=== PATIENT | female | born 1995 | race Caucasian/White ===

== ENCOUNTER 2018-10-16 20:58 | Observation (INO) | payer OTHER ==
--- NOTE | 2018-10-16 22:46 | EDM.PDOC ---
ED HPI GENERAL MEDICAL PROBLEM - General Chief Complaint: Abdominal Pain Stated Complaint: abd pain Time Seen by Provider: 10/16/18 22:45 Source of Information: Reports: Patient History Limitations: Reports: No Limitations - History of Present Illness INITIAL COMMENTS - FREE TEXT/NARRATIVE: pt arrived with pain in the rt upper abdoman. She has had some pain for 2 days but it was much worse tonight She has had a couple of other attacks but not this severe. . Onset: Other ( started yesterday. ) Duration: Hour(s): Location: Reports: Abdomen Associated Symptoms: Reports: Other ( severe rt upper abdomanal pain) Right Abdomen Pain Score (Numeric/FACES): 5 - Related Data Allergies Allergy/AdvReac Type Severity Reaction Status Date / Time amoxicillin Allergy Hives Verified 11/02/14 15:56 Home Meds: Home Meds Sertraline [Zoloft] 100 mg PO BEDTIME 10/16/18 [History] Past Medical History HEENT History: Reports: Impaired Vision Gastrointestinal History: Reports: Other (See Below) Other Gastrointestinal History: recent constipation 2 months ago. took miralax no relief. pain worse after eatingRUQ Psychiatric History: Reports: Anxiety - Infectious Disease History Infectious Disease History: Reports: Chicken Pox - Past Surgical History HEENT Surgical History: Reports: Adenoidectomy, Tonsillectomy Other Female Surgeries/Procedures: LMP 10/02/18 Social & Family History - Tobacco Use Smoking Status *Q: Never Smoker - Caffeine Use Caffeine Use: Reports: Soda - Alcohol Use Days Per Week of Alcohol Use: 1 Number of Drinks Per Day: 3 Total Drinks Per Week: 3 Time of Last Drink: 22:00 - Recreational Drug Use Recreational Drug Use: No ED ROS GENERAL - Review of Systems Review Of Systems: See Below Constitutional: Reports: Decreased Appetite HEENT: Reports: No Symptoms Respiratory: Reports: No Symptoms Cardiovascular: Reports: No Symptoms Endocrine: Reports: No Symptoms GI/Abdominal: Reports: Abdominal Pain, Nausea, Other ( severe pain in the rt upper abdoman. ) : Reports: No Symptoms Musculoskeletal: Reports: No Symptoms Skin: Reports: No Symptoms Neurological: Reports: No Symptoms Psychiatric: Reports: No Symptoms ED EXAM, GI/ABD - Physical Exam Exam: See Below Text/Narrative:: pt arrived with pain in the rt upper abdoman. She was rating her pain at a 7. Exam Limited By: No Limitations General Appearance: Alert, Moderate Distress Ears: Normal TMs Nose: Normal Inspection Throat/Mouth: Normal Inspection Head: Atraumatic Neck: Normal Inspection Respiratory/Chest: No Respiratory Distress Cardiovascular: Regular Rate, Rhythm GI/Abdominal Exam: Other (pt is very tender in the rt upper abdoman with some guarding. She is nauseated but is not vomiting. She is rating her pasin at a 8. ) (Female) Exam: Deferred Rectal (Female) Exam: Deferred Back Exam: Normal Inspection Extremities: Normal Inspection Neurological: Alert, Oriented, Normal Cognition Psychiatric: Anxious Course - Vital Signs Last Recorded V/S: Last Vital Signs Temp 37.4 C 10/16/18 21:51 Pulse 79 10/16/18 21:51 Resp 16 10/16/18 21:51 BP 147/86 H 10/16/18 21:51 Pulse Ox 99 10/16/18 21:51 - Orders/Labs/Meds Orders: Active Orders 24 hr Category Date Time Status Sodium Chloride 0.9% [Normal Saline] 1,000 ml Med 10/17/18 00:30 Active IV ASDIRECTED Medication Orders Sodium Chloride (Normal Saline) 1,000 mls @ 999 mls/hr IV ASDIRECTED MCKAY Labs: Laboratory Tests 10/16/18 10/16/18 10/16/18 Range/Units 22:59 23:02 23:02 WBC 11.0 (4.5-11.0) K/uL RBC 4.73 (3.30-5.50) M/uL Hgb 13.8 (12.0-15.0) g/dL Hct 41.5 (36.0-48.0) % MCV 88 (80-98) fL MCH 29 (27-31) pg MCHC 33 (32-36) % Plt Count 392 (150-400) K/uL Neut % (Auto) 72 H (36-66) % Lymph % (Auto) 20 L (24-44) % [place] % (Auto) 7 H (2-6) % Eos % (Auto) 1 L (2-4) % Baso % (Auto) 0 (0-1) % Sodium (140-148) mmol/L Potassium (3.6-5.2) mmol/L Chloride (100-108) mmol/L Carbon Dioxide (21-32) mmol/L Anion Gap (5.0-14.0) mmol/L BUN (7-18) mg/dL Creatinine (0.6-1.0) mg/dL Est Cr Clr Drug Dosing mL/min Estimated GFR (MDRD) (>60) Glucose (74-106) mg/dL Calcium (8.5-10.1) mg/dL Total Bilirubin (0.2-1.0) mg/dL AST (15-37) U/L ALT (12-78) U/L Alkaline Phosphatase (46-116) U/L C-Reactive Protein 0.71 H (0.0-0.3) mg/dL Total Protein (6.4-8.2) g/dL Albumin (3.4-5.0) g/dL Globulin (2.3-3.5) g/dL Albumin/Globulin Ratio (1.2-2.2) Lipase (73-393) U/L Urine Color Yellow Urine Appearance Clear Urine pH 5.0 (4.5-8.0) Ur Specific [place] 1.020 (1.008-1.030) Urine Protein Negative (NEGATIVE) mg/dL Urine Glucose (UA) Normal (NEGATIVE) mg/dL Urine Ketones Negative (NEGATIVE) mg/dL Urine Occult Blood Negative (NEGATIVE) Urine Nitrite Negative (NEGATIVE) Urine Bilirubin Negative (NEGATIVE) Urine Urobilinogen Normal (NORMAL) mg/dL Ur Leukocyte Esterase Negative (NEGATIVE) Urine RBC 0-5 (0-5) Urine WBC 0-5 (0-5) Ur Epithelial Cells Moderate Amorphous Sediment Not seen Urine Bacteria Few Urine Mucus Not seen 10/16/18 10/17/18 Range/Units 23:02 00:02 WBC (4.5-11.0) K/uL RBC (3.30-5.50) M/uL Hgb (12.0-15.0) g/dL Hct (36.0-48.0) % MCV (80-98) fL MCH (27-31) pg MCHC (32-36) % Plt Count (150-400) K/uL Neut % (Auto) (36-66) % Lymph % (Auto) (24-44) % [place] % (Auto) (2-6) % Eos % (Auto) (2-4) % Baso % (Auto) (0-1) % Sodium 138 L (140-148) mmol/L Potassium 3.4 L (3.6-5.2) mmol/L Chloride 103 (100-108) mmol/L Carbon Dioxide 26 (21-32) mmol/L Anion Gap 12.4 (5.0-14.0) mmol/L BUN 13 (7-18) mg/dL Creatinine 0.8 (0.6-1.0) mg/dL Est Cr Clr Drug Dosing 83.23 mL/min Estimated GFR (MDRD) > 60 (>60) Glucose 100 (74-106) mg/dL Calcium 9.4 (8.5-10.1) mg/dL Total Bilirubin 0.3 (0.2-1.0) mg/dL AST 18 (15-37) U/L ALT 20 (12-78) U/L Alkaline Phosphatase 99 (46-116) U/L C-Reactive Protein (0.0-0.3) mg/dL Total Protein 7.6 (6.4-8.2) g/dL Albumin 3.9 (3.4-5.0) g/dL Globulin 3.7 H (2.3-3.5) g/dL Albumin/Globulin Ratio 1.1 L (1.2-2.2) Lipase 158 (73-393) U/L Urine Color Urine Appearance Urine pH (4.5-8.0) Ur Specific [place] (1.008-1.030) Urine Protein (NEGATIVE) mg/dL Urine Glucose (UA) (NEGATIVE) mg/dL Urine Ketones (NEGATIVE) mg/dL Urine Occult Blood (NEGATIVE) Urine Nitrite (NEGATIVE) Urine Bilirubin (NEGATIVE) Urine Urobilinogen (NORMAL) mg/dL Ur Leukocyte Esterase (NEGATIVE) Urine RBC (0-5) Urine WBC (0-5) Ur Epithelial Cells Amorphous Sediment Urine Bacteria Urine Mucus Meds: Medications Generic Name Dose Route Start Last Admin Trade Name Freq PRN Reason Stop Dose Admin Sodium Chloride 1,000 mls @ 999 mls/hr 10/17/18 00:30 Normal Saline IV ASDIRECTED MCKAY Discontinued Medications Generic Name Dose Route Start Last Admin Trade Name Freq PRN Reason Stop Dose Admin Hydromorphone HCl 0.5 mg 10/16/18 22:50 10/16/18 23:24 Dilaudid IM 10/16/18 22:51 0.5 mg ONETIME ONE Administration Hydromorphone HCl 0.5 mg 10/17/18 00:18 Dilaudid IVPUSH 10/17/18 00:19 ONETIME ONE - Re-Assessments/Exams Free Text/Narrative Re-Assessment/Exam: 10/17/18 00:20 pt doers not have elevated liver enzymes . Her US showed that she had a stone impacted in the neck of the GB, Us felt that this was wedged and not movable. Departure - Departure Time of Disposition: 00:22 Disposition: Admitted As Inpatient 67 Condition: Fair Clinical Impression: Cholelithiasis - Discharge Information Referrals: Omar Gonzales PA [Primary Care Provider] - Forms: ED Department Discharge Care Plan Goals: admit to Dr Alexander - My Orders Last 24 Hours: My Active Orders 10/17/18 00:30 Sodium Chloride 0.9% [Normal Saline] 1,000 ml IV ASDIRECTED - Assessment/Plan Last 24 Hours: My Active Orders 10/17/18 00:30 Sodium Chloride 0.9% [Normal Saline] 1,000 ml IV ASDIRECTED
[2018-10-16] MEDS ORDERED: HYDROmorphone 0.5 MG/0.5 ML Syringe IM ONE (22:50)
[2018-10-17] MEDS ORDERED: HYDROmorphone 0.5 MG/0.5 ML Syringe IVPUSH ONE (00:18)
--- NOTE | 2018-10-17 00:25 | CRLUS ---
INDICATION: Right upper quadrant abdomen pain TECHNIQUE: Ultrasound abdomen limited. Sonographic images of the right upper quadrant were obtained using james-scale and color Doppler images. COMPARISON: None FINDINGS: Liver: Normal in size and echotexture. No masses. No intrahepatic biliary dilatation. Gallbladder: Cholelithiasis with stone in the gallbladder neck with borderline gallbladder wall thickness of 3 millimeters. Negative sonographic Gaston sign. Common bile duct: 5 mm. Pancreas: Partially obscured by bowel gas without discrete lesion. Right kidney: Normal in size. Normal echotexture and cortex. No masses, stones, or hydronephrosis. Vasculature: Proximal abdominal aorta and IVC are normal. IMPRESSION: 1. Cholelithiasis with stone at the gallbladder neck although without sonographic evidence of cholecystitis. Dictated by Jose Alexander MD @ Oct 17 2018 12:21AM Signed by Dr. Jose Alexander @ Oct 17 2018 12:23AM
[2018-10-17] MEDS ORDERED: Ondansetron 4 MG/2 ML SDV IV PRN (00:44)
--- NOTE | 2018-10-17 00:44 | PCM.HP ---
H&P History of Present Illness - General Date of Service: 10/17/18 Admit Problem/Dx: Biliary colic Source of Information: Patient History Limitations: Reports: No Limitations - History of Present Illness Initial Comments - Free Text/Narative: 23-year-old female with no significant past medical history came to the ED with a complaining of abdominal pain, nausea denies any vomiting since last 4 days which is gradually progressing. Patient reports of abdominal pain situated in the upper right quadrant, pain is 2-3/10 intensity patient reports that the pain increase up to 7-8/10 intensity associated with food intake. Patient denies any blood in the stool, blood in the urine. Denies any pain with urination, denies any recent fever, sick contacts. Patient denies any radiation of the pain. Patient reports that the pain is crampy type pain. Patient denies any previous history of kidney stones. The patient tried over- the-counter pain medication, which did not help her. In the ED patient received a Dilaudid pain medication and ultrasound of abdomen showed gallstone obstructing the gallbladder neck without any acute cholecystitis states findings. Patient received IV fluids and lab results showed WBCs and creatinine is within normal limits. Patient is full code. Other review of systems are not significant Right Abdomen Pain Score (Numeric/FACES): 5 - Related Data Allergies/Adverse Reactions: Allergies Allergy/AdvReac Type Severity Reaction Status Date / Time amoxicillin Allergy Hives Verified 11/02/14 15:56 Home Medications: Home Meds Sertraline [Zoloft] 100 mg PO BEDTIME 10/16/18 [History] Acetaminophen/HYDROcodone [Bron[place] 325-5 MG] 1 tab PO Q6H PRN #15 tab 10/18/18 [Rx ] Past Medical History HEENT History: Reports: Impaired Vision Gastrointestinal History: Reports: Other (See Below) Other Gastrointestinal History: recent constipation 2 months ago. took miralax no relief. pain worse after eatingRUQ Psychiatric History: Reports: Anxiety - Infectious Disease History Infectious Disease History: Reports: Chicken Pox - Past Surgical History HEENT Surgical History: Reports: Adenoidectomy, Tonsillectomy Other Female Surgeries/Procedures: LMP 10/02/18 Social & Family History - Family History Family Medical History: Noncontributory - Tobacco Use Smoking Status *Q: Never Smoker - Caffeine Use Caffeine Use: Reports: Soda - Alcohol Use Days Per Week of Alcohol Use: 1 Number of Drinks Per Day: 3 Total Drinks Per Week: 3 Time of Last Drink: 22:00 - Recreational Drug Use Recreational Drug Use: No H&P Review of Systems - Review of Systems: Review Of Systems: See Below General: Reports: Fatigue. Denies: Fever, Chills, Malaise, Weakness Pulmonary: Denies: Shortness of Breath, Wheezing, Pleuritic Chest Pain Cardiovascular: Denies: Chest Pain, Palpitations, Dyspnea on Exertion Gastrointestinal: Reports: Abdominal Pain, Anorexia, Decreased Appetite, Nausea. Denies: Black Stool, Bloody Stool, Constipation, Difficulty Swallowing , Distension, Flatus, Stool Incontinence, Vomiting Genitourinary: Denies: Dysuria, Frequency, Burning Musculoskeletal: Denies: Neck Pain, Shoulder Pain Psychiatric: Denies: Confusion Neurological: Denies: Confusion, Dizziness, Headache, Numbness Hematologic/Lymphatic: Denies: Anemia, Easy Bleeding Exam - Exam Exam: See Below - Vital Signs Vital Signs: Last Vital Signs Temp 37.4 C 10/16/18 21:51 Pulse 79 10/16/18 21:51 Resp 16 10/16/18 21:51 BP 147/86 H 10/16/18 21:51 Pulse Ox 99 10/16/18 21:51 Weight: 102.8 kg - Exam General: Alert, Oriented Neck: Supple, Trachea Midline Lungs: Clear to Auscultation, Normal Respiratory Effort Cardiovascular: Regular Rate, Regular Rhythm GI/Abdominal Exam: Normal Bowel Sounds. No: Tender Extremities: Normal Inspection, Normal Range of Motion - Patient Data Lab Results Last 24 hrs: Laboratory Results - last 24 hr 10/16/18 10/16/18 10/16/18 Range/Units 22:59 23:02 23:02 WBC 11.0 (4.5-11.0) K/uL RBC 4.73 (3.30-5.50) M/uL Hgb 13.8 (12.0-15.0) g/dL Hct 41.5 (36.0-48.0) % MCV 88 (80-98) fL MCH 29 (27-31) pg MCHC 33 (32-36) % Plt Count 392 (150-400) K/uL Neut % (Auto) 72 H (36-66) % Lymph % (Auto) 20 L (24-44) % [place] % (Auto) 7 H (2-6) % Eos % (Auto) 1 L (2-4) % Baso % (Auto) 0 (0-1) % Sodium (140-148) mmol/L Potassium (3.6-5.2) mmol/L Chloride (100-108) mmol/L Carbon Dioxide (21-32) mmol/L Anion Gap (5.0-14.0) mmol/L BUN (7-18) mg/dL Creatinine (0.6-1.0) mg/dL Est Cr Clr Drug Dosing mL/min Estimated GFR (MDRD) (>60) Glucose (74-106) mg/dL Calcium (8.5-10.1) mg/dL Total Bilirubin (0.2-1.0) mg/dL AST (15-37) U/L ALT (12-78) U/L Alkaline Phosphatase (46-116) U/L C-Reactive Protein 0.71 H (0.0-0.3) mg/dL Total Protein (6.4-8.2) g/dL Albumin (3.4-5.0) g/dL Globulin (2.3-3.5) g/dL Albumin/Globulin Ratio (1.2-2.2) Lipase (73-393) U/L Urine Color Yellow Urine Appearance Clear Urine pH 5.0 (4.5-8.0) Ur Specific [place] 1.020 (1.008-1.030) Urine Protein Negative (NEGATIVE) mg/dL Urine Glucose (UA) Normal (NEGATIVE) mg/dL Urine Ketones Negative (NEGATIVE) mg/dL Urine Occult Blood Negative (NEGATIVE) Urine Nitrite Negative (NEGATIVE) Urine Bilirubin Negative (NEGATIVE) Urine Urobilinogen Normal (NORMAL) mg/dL Ur Leukocyte Esterase Negative (NEGATIVE) Urine RBC 0-5 (0-5) Urine WBC 0-5 (0-5) Ur Epithelial Cells Moderate Amorphous Sediment Not seen Urine Bacteria Few Urine Mucus Not seen 10/16/18 10/17/18 Range/Units 23:02 00:02 WBC (4.5-11.0) K/uL RBC (3.30-5.50) M/uL Hgb (12.0-15.0) g/dL Hct (36.0-48.0) % MCV (80-98) fL MCH (27-31) pg MCHC (32-36) % Plt Count (150-400) K/uL Neut % (Auto) (36-66) % Lymph % (Auto) (24-44) % [place] % (Auto) (2-6) % Eos % (Auto) (2-4) % Baso % (Auto) (0-1) % Sodium 138 L (140-148) mmol/L Potassium 3.4 L (3.6-5.2) mmol/L Chloride 103 (100-108) mmol/L Carbon Dioxide 26 (21-32) mmol/L Anion Gap 12.4 (5.0-14.0) mmol/L BUN 13 (7-18) mg/dL Creatinine 0.8 (0.6-1.0) mg/dL Est Cr Clr Drug Dosing 83.23 mL/min Estimated GFR (MDRD) > 60 (>60) Glucose 100 (74-106) mg/dL Calcium 9.4 (8.5-10.1) mg/dL Total Bilirubin 0.3 (0.2-1.0) mg/dL AST 18 (15-37) U/L ALT 20 (12-78) U/L Alkaline Phosphatase 99 (46-116) U/L C-Reactive Protein (0.0-0.3) mg/dL Total Protein 7.6 (6.4-8.2) g/dL Albumin 3.9 (3.4-5.0) g/dL Globulin 3.7 H (2.3-3.5) g/dL Albumin/Globulin Ratio 1.1 L (1.2-2.2) Lipase 158 (73-393) U/L Urine Color Urine Appearance Urine pH (4.5-8.0) Ur Specific [place] (1.008-1.030) Urine Protein (NEGATIVE) mg/dL Urine Glucose (UA) (NEGATIVE) mg/dL Urine Ketones (NEGATIVE) mg/dL Urine Occult Blood (NEGATIVE) Urine Nitrite (NEGATIVE) Urine Bilirubin (NEGATIVE) Urine Urobilinogen (NORMAL) mg/dL Ur Leukocyte Esterase (NEGATIVE) Urine RBC (0-5) Urine WBC (0-5) Ur Epithelial Cells Amorphous Sediment Urine Bacteria Urine Mucus Result Diagrams: 10/18/18 05:42 10/18/18 05:42 - Problem List (1) Biliary colic SNOMED Code(s): 83846995 ICD Code: K80.50 - CALCULUS OF BILE DUCT W/O CHOLANGITIS OR CHOLECYST W/O OBST Status: Acute Current Visit: Yes (2) Cholelithiasis SNOMED Code(s): 652785136 ICD Code: K80.20 - CALCULUS OF GALLBLADDER W/O CHOLECYSTITIS W/O OBSTRUCTION Status: Acute Current Visit: Yes (3) ADRIEL (generalized anxiety disorder) SNOMED Code(s): 76704483 ICD Code: F41.1 - GENERALIZED ANXIETY DISORDER Status: Chronic Current Visit: No (4) Morbid obesity with BMI of 40.0-44.9, adult SNOMED Code(s): 247811381, 45728567960574 ICD Code: E66.01 - MORBID (SEVERE) OBESITY DUE TO EXCESS CALORIES; Z68.41 - BODY MASS INDEX (BMI) 40.0-44.9, ADULT Status: Chronic Current Visit: No (5) Social anxiety disorder SNOMED Code(s): 81343256 ICD Code: F40.10 - SOCIAL PHOBIA, UNSPECIFIED Status: Chronic Current Visit: No Problem List Initiated/Reviewed/Updated: Yes Orders Last 24hrs: Active Orders 24 hr Category Date Time Status Sodium Chloride 0.9% [Normal Saline] 1,000 ml Med 10/17/18 00:30 Active IV ASDIRECTED Medication Orders Sodium Chloride (Normal Saline) 1,000 mls @ 999 mls/hr IV ASDIRECTED MCKAY Assessment/Plan Comment:: 23-year-old female with no significant past medical history came to the ED with a complaint of abdominal pain and diagnosed with biliary colic and admitted into the hospital in observational status. Patient ultrasound showed a gallstone obstructing the gallbladder neck No acute cholecystitis findings are noted WBCs within normal limit Seems like biliary colic We will treat with ketorolac 30 mg every 6 hours as needed for pain control Maintenance IV fluids CBC, CMP tomorrow CRP is elevated We will hold on any antibiotics at this point N.p.o. for now We will consult surgery and will follow the recommendations DVT prophylaxis Pass boots IV fluids 150 mL/h normal saline Diet n.p.o. for now CODE STATUS full code Observational status
[2018-10-17] MEDS ORDERED: Pantoprazole 40 MG Vial IV SCH ×2 (00:45→21:00)
[2018-10-17] MEDS: Sodium Chloride 0.9% 1,000 ML IV SCH ×2 (00:49→07:16)
[2018-10-17] MEDS ORDERED: Potassium Chloride Riders 40 MEQ in Premix Bag 1 BAG IV ONE (00:50)
[2018-10-17] MEDS ORDERED: Ketorolac 30 MG/ML SDV IVPUSH PRN (00:56)
[2018-10-17] MEDS: Potassium Chloride 20 MEQ in Premix Bag 1 BAG IV SCH ×2 (02:43→06:10)
[2018-10-17] MEDS ORDERED: Bupivacaine 0.5% 50 ML MDV ONE (07:21)
[2018-10-17] MEDS ORDERED: Lidocaine 1% with EPINEPHrine 1:100,000 50 ML MDV ONE (07:22)
[2018-10-17] MEDS ORDERED: Rocuronium 50 MG/5 ML Vial ONE (07:37)
[2018-10-17] MEDS ORDERED: Dexamethasone 4 MG/ML SDV ONE (07:37)
[2018-10-17] MEDS ORDERED: Midazolam 1 MG/ML 2 ML SDV ONE (07:37)
[2018-10-17] MEDS ORDERED: Glycopyrrolate 0.2 MG/ML 5 ML MDV ONE (07:37)
[2018-10-17] MEDS ORDERED: Neostigmine Methylsulfate 1 MG/ML 5 ML Syringe ONE (07:37)
[2018-10-17] MEDS ORDERED: fentaNYL 250 MCG/5 ML SDV ONE (07:37)
[2018-10-17] MEDS ORDERED: Ondansetron 4 MG/2 ML SDV ONE (07:37)
[2018-10-17] MEDS ORDERED: Propofol 200 MG/20 ML SDV ONE (07:37)
[2018-10-17] MEDS ORDERED: Ropivacaine 51 ML, Dexamethasone 8 MG, EPINEPHrine 0.4 MG, Sodium Chloride 0.9% 26.6 ML NERVRT SCH ×4 (09:00)
[2018-10-17] MEDS ORDERED: Docusate Sodium 100 MG Cap PO PRN (09:01)
[2018-10-17] MEDS ORDERED: Benzocaine/Cetylpyridinium/Menthol Lozenge MUCMEM PRN (09:01)
[2018-10-17] MEDS ORDERED: Zolpidem 5 MG Tab PO PRN (09:01)
[2018-10-17] MEDS ORDERED: hydrOXYzine HCl 100 MG/2 ML SDV IM PRN (09:01)
[2018-10-17] MEDS ORDERED: fentaNYL 100 MCG/2 ML SDV IVPUSH PRN (09:03)
[2018-10-17] MEDS ORDERED: Sodium Chloride 0.9% 10 ML ONE (09:40)
[2018-10-17] MEDS ORDERED: ceFAZolin 1 GM Vial ONE ×2 (09:40→09:41)
[2018-10-17] MEDS ORDERED: Lactated Ringers 1,000 ML ONE (10:31)
[2018-10-17] MEDS ORDERED: fentaNYL 100 MCG/2 ML SDV IVPUSH ONE (11:21)
[2018-10-17] MEDS: Acetaminophen/HYDROcodone 325-5 MG Tab PO PRN ×3 (15:33→23:46)
[2018-10-18 07:26] VITALS: BP 103/55
[2018-10-18] MEDS: Acetaminophen/HYDROcodone 325-5 MG Tab PO PRN (07:30)
--- NOTE | 2018-10-18 08:01 | OR ---
DATE OF PROCEDURE: 10/17/2018 PROCEDURE: Laparoscopic cholecystectomy. PREPROCEDURE DIAGNOSIS: Cholelithiasis, cholecystitis. POSTPROCEDURE DIAGNOSIS: Cholelithiasis, cholecystitis. RISKS: Risks, benefits, alternatives, and limitations including, but not limited to infection, bleeding, and perforation were explained to the patient, and they wished to proceed. We also discussed common bile duct injuries and cystic duct leaks. We also discussed possibility of open surgery. INDICATIONS: This is a pleasant 23-year-old female, who had right upper quadrant abdominal pain associated with eating greasy and fatty foods, in addition to a large stone stuck in her gallbladder neck. The patient was given the option of surgery versus nonsurgical options with evaluation of HIDA scan. The patient has declined the above choices. PROCEDURE IN DETAIL: The patient was placed in supine position. A supraumbilical curvilinear incision was made. A Veress needle was used to enter the abdomen without abnormality and then a drop test was performed without abnormality. The abdomen was subsequently insufflated. This was followed by a 12 mm port. An additional 10 and two 5 mm ports were also entered under direct visualization. The gallbladder was retracted cephalad. The infundibulum was retracted inferolaterally. A "clear view" of the gallbladder would be eventually obtained by dissecting everything except for the duct and the artery. These were clipped x3 and subsequently transected. The remaining one-third of the gallbladder was removed off the gallbladder bed. This was delivered through the superior port without difficulty. The gallbladder bed was again inspected for bleeding, which none was noted. The abdomen was irrigated, the liquid removed. The ports were then removed and irrigated, closed with 3-0 Vicryl and 4-0 Vicryl in a running fashion. Dressings and Dermabond were applied. The patient tolerated the procedure well. Segun Peña MD /[id number]
--- NOTE | 2018-10-18 12:07 | PN ---
DATE OF SERVICE: 10/18/2018 SUBJECTIVE: The patient is doing very well today. Pain is well controlled. No nausea, vomiting, shortness of breath, or chest pain. OBJECTIVE: VITAL SIGNS: Vital signs are stable. CARDIOVASCULAR: Regular rate. RESPIRATORY: Lungs are clear to auscultation bilaterally. ABDOMEN: Incision healing well. ASSESSMENT: Status post cholecystectomy. PLAN: The patient will be discharged today. Segun Peña MD /[id number]
--- NOTE | 2018-10-18 12:10 | PN ---
DATE OF SERVICE: 10/18/2018 DISCHARGE DIAGNOSIS: Status post laparoscopic cholecystectomy. SUMMARY OF HOSPITAL COURSE: A pleasant 23-year-old female who underwent a laparoscopic cholecystectomy. This was without difficulty. Postoperatively, pain was controlled. She had no nausea, vomiting, shortness of breath, or chest pain. ACTIVITY: As tolerated except no lifting greater than 30 pounds for 30 days. DISCHARGE MEDICATIONS: Please see MAR, but include Vanduser 15 pills for pain management. Follow up in 7 to 14 days. Segun Peña MD /[id number]
== END 2018-10-18 12:21 | disposition home or self-care (01) ==
LOC: JP.ED 20:58 → JP.MS 10-17 00:44
PROVIDERS: ADMIT Family Medicine; ATTEND Family Medicine
DX: K80.11 Calculus of gallbladder with chronic cholecystitis with obstruction (principal); F41.1 Generalized anxiety disorder; F40.10 Social phobia, unspecified; E66.01 Morbid (severe) obesity due to excess calories; Z68.41 Body mass index [BMI] 40.0-44.9, adult; Z88.0 Allergy status to penicillin; Z79.899 Other long term (current) drug therapy
CPT/HCPCS: 36415; 76705; 80053; 81001; 81025; 83690; 83735; 85025; 86140; 88304; 96361; 96372; 96374; 96375; 99285-25; A9270-GY; C9113; G0378; J0171; J0690; J1100; J1170; J2001; J2250; J2405; J2704; J2710; J2795; J3010; J3410; J3480; J3490; J7030; J7050; J7120

== ENCOUNTER 2019-12-03 12:33 | Inpatient (IN) | payer BC, MEDICAID ==
[2019-12-03] MEDS ORDERED: Ondansetron 4 MG/2 ML SDV IV PRN (13:26)
[2019-12-03] MEDS ORDERED: Sodium Chloride 0.9% 10 ML Syringe FLUSH PRN (13:26)
[2019-12-03] MEDS ORDERED: Calcium Carbonate 500 MG Tab.Chew PO PRN (13:26)
[2019-12-03] MEDS ORDERED: Lactated Ringers 1,000 ML IV SCH (13:30)
--- NOTE | 2019-12-03 16:02 | PCM.LDHP ---
L&D History of Present Illness - General Date of Service: 12/03/19 Admit Problem/Dx: Patient Status Order with Admit Dx/Problem 12/03/19 13:27 Patient Status [ADT] Routine Admission Diagnosis/Problem Admission Diagnosis/Problem Source of Information: Patient History Limitations: Reports: No Limitations - History of Present Illness Introduction:: 12/03/19 24 yo is here with latent labor. She is 40 1/7 weeks. She had contractions last evening that then tapered out overnight. Starting this am at about 0400 they started again. She rates them as mild but did have blood show so she came in to be checked. Upon arrival she was noted to have elevated blood pressures and protein in her urine. She denies headache, blurred vision. Upon arrival she is comfortable. SVE /-1. Additional lab work ordered for preeclampsia workup. Timing/Duration: Reports: minutes: (2-4) Location, : Reports: Abdomen Severity: Mild Improves with: Reports: None Worsens with: Reports: None Associated Symptoms: Reports: vaginal bleeding (blood show, normal). Denies: vaginal fluid - Related Data Allergies/Adverse Reactions: Allergies Allergy/AdvReac Type Severity Reaction Status Date / Time amoxicillin Allergy Hives Verified 12/03/19 13:46 Home Medications: Home Meds Sertraline [Zoloft] 100 mg PO BEDTIME 10/16/18 [History] No115/Iron/Folic Acid [ 19 Chewable Tablet] 1 each PO DAILY 07/23 [History] Past Medical History HEENT History: Reports: Impaired Vision Gastrointestinal History: Reports: Other (See Below) Other Gastrointestinal History: recent constipation 2 months ago. took miralax no relief. pain worse after eatingRUQ Genitourinary History: Reports: None CASH APPLICATIONS COORDINATOR History: Reports: : 1 Para: 0 LMP (Approximate): Psychiatric History: Reports: Anxiety Endocrine/Metabolic History: Reports: Obesity/BMI 30+ - Infectious Disease History Infectious Disease History: Reports: Chicken Pox - Past Surgical History HEENT Surgical History: Reports: Adenoidectomy, Tonsillectomy GI Surgical History: Reports: Cholecystectomy Other Female Surgeries/Procedures: LMP 10/02/18 Social & Family History - Family History Family Medical History: Noncontributory - Tobacco Use Smoking Status *Q: Never Smoker Second Hand Smoke Exposure: No - Caffeine Use Caffeine Use: Reports: Coffee, Soda - Recreational Drug Use Recreational Drug Use: No H&P Review of Systems - Review of Systems: Review Of Systems: See Below General: Reports: No Symptoms HEENT: Reports: No Symptoms Pulmonary: Reports: No Symptoms Cardiovascular: Reports: No Symptoms Gastrointestinal: Reports: No Symptoms Genitourinary: Reports: No Symptoms Musculoskeletal: Reports: No Symptoms Skin: Reports: No Symptoms Psychiatric: Reports: No Symptoms Neurological: Reports: No Symptoms Hematologic/Lymphatic: Reports: No Symptoms Immunologic: Reports: No Symptoms L&D Exam - Exam Exam: See Below - Vital Signs Vital Signs: Last Vital Signs Temp 37.3 C 12/03/19 13:05 Pulse 105 H 12/03/19 13:05 Resp 18 12/03/19 13:05 BP 145/98 H 12/03/19 13:05 Pulse Ox 93 L 12/03/19 13:05 Weight: 104.326 kg - OB Specific Contraction Duration (sec): 60-70 Contraction Frequency (min): 1.5-3 Contraction Intensity: Mild Movement: Active Heart Tones: Present Heart Rate (FHR) Variability: Moderate (6-25 bmp) Presentation: Vertex - Exam General: Alert, Oriented HEENT: PERRLA, Conjunctiva Clear, EACs Clear, EOMI, Hearing Intact, Mucosa Moist & [place], Nares Patent, Normal Nasal Septum, Posterior Pharynx Clear, TMs Clear Neck: Supple, Trachea Midline Lungs: Clear to Auscultation, Normal Respiratory Effort Cardiovascular: Regular Rate, Regular Rhythm GI/Abdominal Exam: Normal Bowel Sounds, Soft, Non-Tender, No Distention, No Mass , Pelvis Stable Rectal Exam: Normal Exam, Normal Rectal Tone Genitourinary: Normal external exam, Normal bimanual exam, Cervical dilitation, Enlarged uterus Back Exam: Normal Inspection, Full Range of Motion Extremities: Normal Inspection, Normal Range of Motion, Non-Tender, No Pedal Edema, Normal Capillary Refill Skin: Warm, Dry, Intact Neurological: Cranial Nerves Intact, Reflexes Equal Bilateral DTR: 2+: Patella (L), Patella (R) Psychiatric: Alert, Normal Affect, Normal Mood - Patient Data Lab Results Last 24 hrs: Laboratory Results - last 24 hr 12/03/19 12/03/19 12/03/19 Range/Units 12:43 13:26 13:54 WBC 11.2 H (4.5-11.0) K/uL RBC 4.55 (3.30-5.50) M/uL Hgb 12.7 (12.0-15.0) g/dL Hct 37.8 (36.0-48.0) % MCV 83 (80-98) fL MCH 28 (27-31) pg MCHC 34 (32-36) % Plt Count 313 (150-400) K/uL Neut % (Auto) 75 H (36-66) % Lymph % (Auto) 16 L (24-44) % [place] % (Auto) 8 H (2-6) % Eos % (Auto) 0 L (2-4) % Baso % (Auto) 0 (0-1) % Sodium 136 L (140-148) mmol/L Potassium 4.0 (3.6-5.2) mmol/L Chloride 101 (100-108) mmol/L Carbon Dioxide 25 (21-32) mmol/L Anion Gap 14.0 (5.0-14.0) mmol/L BUN 7 (7-18) mg/dL Creatinine 0.6 (0.6-1.0) mg/dL Est Cr Clr Drug Dosing 115.33 mL/min Estimated GFR (MDRD) > 60 (>60) Glucose 83 (74-106) mg/dL Calcium 9.0 (8.5-10.1) mg/dL Total Bilirubin 0.3 (0.2-1.0) mg/dL AST 21 (15-37) U/L ALT 16 (12-78) U/L Alkaline Phosphatase 276 H D (46-116) U/L Lactate Dehydrogenase 168 (82-234) U/L Total Protein 6.9 (6.4-8.2) g/dL Albumin 2.9 L (3.4-5.0) g/dL Globulin 4.0 H (2.3-3.5) g/dL Albumin/Globulin Ratio 0.7 L (1.2-2.2) Urine Color Yellow (YELLOW) Urine Appearance Cloudy A (CLEAR) Urine pH 7.5 (5.0-8.0) Ur Specific [place] 1.020 (1.008-1.030) Urine Protein 30 H (NEGATIVE) mg/dL Urine Glucose (UA) Negative (NEGATIVE) mg/dL Urine Ketones Negative (NEGATIVE) mg/dL Urine Occult Blood Moderate H (NEGATIVE) Urine Nitrite Negative (NEGATIVE) Urine Bilirubin Negative (NEGATIVE) Urine Urobilinogen 0.2 (0.2-1.0) EU/dL Ur Leukocyte Esterase Small (NEGATIVE) Urine RBC 10-20 H (0-5) Urine WBC 20-30 H (0-5) Ur Epithelial Cells Many Amorphous Sediment Not seen Urine Bacteria Moderate Urine Mucus Not seen Result Diagrams: 12/03/19 13:26 12/03/19 13:54 - Problem List (1) SNOMED Code(s): 08820839 ICD Code: Z34.90 - ENCNTR FOR SUPRVSN OF NORMAL , UNSP, UNSP TRIMESTER Status: Acute Current Visit: Yes Qualifiers: Weeks of gestation: 40 weeks Qualified Code(s): Z3A.40 - 40 weeks gestation of (2) induced hypertension, antepartum SNOMED Code(s): 54142786, 14487804 ICD Code: O13.9 - GESTATIONAL HTN W/O SIGNIFICANT PROTEINURIA, UNSP TRIMESTER Status: Acute Current Visit: Yes Problem List Initiated/Reviewed/Updated: Yes Orders Last 24hrs: Active Orders 24 hr Category Date Time Status Patient Status [ADT] Routine ADT 12/03/19 13:27 Active Communication Order [RC] ASDIRECTED Care 12/03/19 13:27 Active Notify Provider Vital Signs [RC] PRN Care 12/03/19 13:28 Active Notify Provider [RC] PRN Care 12/03/19 13:27 Active Up ad Flory [RC] ASDIRECTED Care 12/03/19 13:26 Active VTE/DVT Education [RC] Click to Edit Care 12/03/19 13:29 Active Vital Signs [RC] PER UNIT ROUTINE Care 12/03/19 13:27 Active Regular Diet [DIET] Diet 12/03/19 Lunch Active DRUG SCREEN, URINE [URCHEM] Routine Lab 12/03/19 13:43 Ordered PROTEIN/CREATININE RATIO,URINE [URCHEM] Routine Lab 12/03/19 13:46 Ordered Calcium Carbonate [Tums] Med 12/03/19 13:26 Active 1,000 mg PO Q2H PRN Lactated Ringers [Ringers, Lactated] 1,000 ml Med 12/03/19 13:30 Active IV ASDIRECTED Ondansetron [Zofran] Med 12/03/19 13:26 Active 4 mg IV Q4H PRN Sodium Chloride 0.9% [Saline Flush] Med 12/03/19 13:26 Active 10 ml FLUSH ASDIRECTED PRN DVT/VTE Prophylaxis Reflex [OM.PC] Routine Oth 12/03/19 13:26 Ordered Saline Lock Insert [OM.PC] Routine Oth 12/03/19 13:27 Ordered Resuscitation Status Routine Resus Stat 12/03/19 13:26 Ordered Medication Orders Calcium Carbonate/Glycine (Tums) 1,000 mg PO Q2H PRN PRN Reason: Indigestion Lactated Ringer's (Ringers, Lactated) 1,000 mls @ 125 mls/hr IV ASDIRECTED MCKAY Ondansetron HCl (Zofran) 4 mg IV Q4H PRN PRN Reason: Nausea/Vomiting Sodium Chloride (Saline Flush) 10 ml FLUSH ASDIRECTED PRN PRN Reason: Keep Vein Open Assessment/Plan Comment:: 12/03/19 Assessment: 24 yo at 40 1/7 weeks here in latent labor GBS negative Elevated blood pressures, UA positive for protein, LDH normal, platelets normal , liver enzymes normal O pos blood type Rubella NON-immune Plan: Anticipate Admit due to cervical dilation, contractions, and elevated blood pressure Will recheck cervical dilation and consider AROM if patient requests
--- NOTE | 2019-12-03 16:32 | PCM.PNLD ---
Labor Progress Note - VS & Meds Vital Signs: Last Vital Signs Temp 36.1 C 12/03/19 15:30 Pulse 89 12/03/19 15:30 Resp 16 12/03/19 15:30 BP 136/84 12/03/19 15:30 Pulse Ox 96 12/03/19 15:30 Active Medications: Current Medications Calcium Carbonate/Glycine (Tums) 1,000 mg PO Q2H PRN PRN Reason: Indigestion Lactated Ringer's (Ringers, Lactated) 1,000 mls @ 125 mls/hr IV ASDIRECTED MCKAY Ondansetron HCl (Zofran) 4 mg IV Q4H PRN PRN Reason: Nausea/Vomiting Sodium Chloride (Saline Flush) 10 ml FLUSH ASDIRECTED PRN PRN Reason: Keep Vein Open - Uterine Contractions Uterine Monitoring Mode: External [place] Contraction Frequency (min): 1.5-3 Contraction Duration (sec): 60-70 Contraction Intensity: Mild to Moderate Uterine Resting Tone: Soft - Monitoring Heart Rate (FHR) Baseline: 130 Heart Rate (FHR) Variability: Moderate (6-25 bmp) Accelerations: Present, 15x15 Decelerations: None Strip Review: Category I - Vaginal Exam Dilation (cm): 5 Effacement (Percent): 90 Station: -1 Cervical Position: Midposition Sterile Vaginal Exam Performed By: Jane Hansen Vaginal Exam Comment: bloody show noted - Labor Progress (Free Text) Labor Progress: 12/03/19 Cervical change noted, contractions every 3-4 minutes and are mild to moderate. After discussing options with patient she is requesting AROM to hopefully strengthen contractions. Head well applied. Risks reviewed including injury to vaginal tissue, scalp, and prolapsed cord. Patient agrees to procedure and AROM was done. Clear fluid. Desires unmedicated at this point.
[2019-12-03] MEDS ORDERED: ePHEDrine 50 MG/ML SDV IVPUSH PRN (18:35)
[2019-12-03] MEDS ORDERED: Lactated Ringers 1,000 ML IV ONE (18:35)
[2019-12-03] MEDS ORDERED: Ropivacaine 100 ML ONE (19:16)
--- NOTE | 2019-12-03 20:01 | PCM.PNLD ---
Labor Progress Note - VS & Meds Vital Signs: Last Vital Signs Temp 36.1 C 12/03/19 15:30 Pulse 92 12/03/19 16:30 Resp 18 12/03/19 16:30 BP 146/89 H 12/03/19 17:30 Pulse Ox 96 12/03/19 16:30 Active Medications: Current Medications Calcium Carbonate/Glycine (Tums) 1,000 mg PO Q2H PRN PRN Reason: Indigestion Ephedrine Sulfate (Ephedrine Sulfate) 10 mg IVPUSH ASDIRECTED PRN PRN Reason: Hypotension Lactated Ringer's (Ringers, Lactated) 1,000 mls @ 125 mls/hr IV ASDIRECTED MCKAY Oxytocin/Sodium Chloride (Pitocin In Ns 20 Units/1,000 Ml) 20 unit in 1,000 mls @ 2,997 mls/hr IV ASDIRECTED MCKAY; Protocol Ondansetron HCl (Zofran) 4 mg IV Q4H PRN PRN Reason: Nausea/Vomiting Sodium Chloride (Saline Flush) 10 ml FLUSH ASDIRECTED PRN PRN Reason: Keep Vein Open Discontinued Medications Lactated Ringer's (Ringers, Lactated) 1,000 mls @ 999 mls/hr IV .BOLUS ONE Stop: 12/03/19 19:35 Last Admin: 12/03/19 18:00 Dose: 999 mls/hr Ropivacaine (Naropin 0.2%) Confirm Administered Dose 100 mls @ as directed .ROUTE .STK-MED ONE Stop: 12/03/19 19:17 - Uterine Contractions Uterine Monitoring Mode: External [place] Contraction Frequency (min): 1-2 Contraction Duration (sec): 60-110 Contraction Intensity: Moderate to Strong Uterine Resting Tone: Soft - Monitoring Monitor Mode: External Ultrasound Heart Rate (FHR) Baseline: 130 Heart Rate (FHR) Variability: Moderate (6-25 bmp) Accelerations: Present, 15x15 Decelerations: Early Strip Review: Category I - Vaginal Exam Dilation (cm): 7 Effacement (Percent): 100 Station: 0 Cervical Position: Midposition Sterile Vaginal Exam Performed By: Jane Hansen Vaginal Exam Comment: bloody show noted - Labor Progress (Free Text) Labor Progress: 12/03/19 Patient recieved an epidural for pain relief. She is now comfortable in bed with the peanut ball. Category 1 strip, some early decelerations noted. SVE 7/ 100/0.
--- NOTE | 2019-12-03 20:50 | ANES ---
DATE OF SERVICE: 12/03/2019 INDICATIONS: I was called at approximately 18:30 this evening for a young lady in Labor and Delivery requesting a labor epidural. I was at the bedside at approximately 18:50. A brief history and physical was done with the patient. The patient has had a normal , is not currently on any blood thinners and no significant health issues. Platelet count was over 300. Risks and benefits, including risk for infection and risk for posterior puncture headache was discussed with the patient. The patient verbalizes her understanding, wishes to proceed with the labor epidural at this time. TECHNIQUE: The patient was sat at the edge of the bed. Betadine prep x3 to the lumbar region was done, sterile drape was placed. 1% lidocaine skin wheal and deep was done. A 17- gauge Tuohy needle was inserted at approximately the L4-L5 position. Loss of resistance was easily achieved at approximately 6 cm. Catheter was easily threaded and the Tuohy needle was withdrawn and epidural catheter was pulled back and secured at approximately 14 cm. The patient tolerated that without difficulty. I then proceeded to give the patient a 4 mL test dose and the patient was laid in supine position with slight left uterine displacement position. After several minutes, the patient showed no signs of local anesthetic toxicity or intravascular injection of local anesthetic and did not have subarachnoid block. I then proceeded to give the patient 12 mL of 0.2% ropivacaine bolus via the epidural and started her on a 0.2% ropivacaine drip at 12 mL an hour. The patient's blood pressure was stable throughout. Please refer to the nurse's notes for vital signs. The patient was stating that she was starting to feel some numbness and tingling in her feet and stated that she was feeling better overall. I will be available if needed. Isaias An CRNA /[id number]
[2019-12-03] MEDS ORDERED: Witch Hazel Medicated Pads 100/Jar TOP PRN (22:31)
[2019-12-03] MEDS ORDERED: Lanolin 100% Cream 40 GM Tube TOP PRN (22:31)
[2019-12-03] MEDS ORDERED: Benzocaine 20% Top Spray 56 GM Bottle TOP PRN (22:31)
[2019-12-03] MEDS ORDERED: Measles, Mumps & Rubella Vaccine 0.5 ML SDV SUBCUT ONE (22:31)
--- NOTE | 2019-12-03 22:47 | PCM.DEL ---
L & D Note - General Info Date of Service: 12/03/19 Mother's Due Date: 12/02/19 - Delivery Note Labor: Spontaneous, Augmented by ARM Delivery Outcome: Livebirth Delivery Method: Spontaneous Vaginal Delivery-Single Delivery Mode: Spontaneous Presentation: Right Occiput Anterior (DENILSON) Nuchal Cord: Present, Reduced Anesthesia Type: Epidural Amniotic Fluid Description: Clear Episiotomy Type: None Laceration: 2nd Degree, Labial, Perineal Suture type: Vicryl Suture size: 3-0 Placenta: Intact, Spontaneous Cord: 3 Vessels Provider: Jane Hansen Score 1 min: 8 Score 5 min: 8 Second Stage Interventions: Reports: Second Nurse Assessed Progress of Descent, Second Nurse Reviewed Contraction Pattern, Second Nurse Reviewed Heart Tones, Encouragement Given, Pushing Effectively, Pushing, Feet in Foot Rests, Pushing, Left Side, Pushing, McRobert's Position, Pushing, Right Side Delivery Comments (Free Text/Narrative):: 12/03/19 24 yo now delivered viable female at 2111 via spontaneous vaginal delivery under epidural anesthesia at 40 1/7 weeks. Category 1 strip though out labor. With pushing there were decelerations and there was difficulty picking up baby due to how low she was in the pelvis. We would get spot checks of 120- 140 through out pushing. Patient was rolled from side to side, given oxygen, fluid bolus, and was pushing very effectively during this time. I did ask for a kiwi due to difficulty picking up heart tones and worry about distress but patient delivered with the next push. Baby was delivered DENILSON with a left sided caput. Delayed cord clamping done and baby initially to mothers chest. Baby appeared stunned and so the cord was clamped and cut and baby was brought to warmer and was dried and stimulated. Apgars 8, 8 (one for color, one for respirations both times). The placenta delivered spontaneously intact with a 3 vessel cord. Patient had 2nd degree tear that extended left and right with a right low labial tear. 3-0 vicryl used:The labial tear was repaired with interrupted sutures. The second degree perineal tear was then repaired in usual fashion. EBL 350. There were no vaginal or cervical lacerations and the rectum was assessed and is intact. Weight 6 lb 14 oz, 20.5 in long. Stages of labor: 1: 0767-0430 2: 7404-3952 3: 2690-0377 - General Info Date of Service: 12/03/19 Functional Status: Reports: Pain Controlled - Review of Systems General: Reports: No Symptoms HEENT: Reports: No Symptoms Pulmonary: Reports: No Symptoms Cardiovascular: Reports: No Symptoms Gastrointestinal: Reports: No Symptoms Genitourinary: Reports: No Symptoms Musculoskeletal: Reports: No Symptoms Skin: Reports: No Symptoms Neurological: Reports: No Symptoms Psychiatric: Reports: No Symptoms - Patient Data Vitals - Most Recent: Last Vital Signs Temp 36.1 C 12/03/19 15:30 Pulse 92 12/03/19 16:30 Resp 18 12/03/19 16:30 BP 146/89 H 12/03/19 17:30 Pulse Ox 96 12/03/19 16:30 Weight - Most Recent: 104.326 kg Lab Results Last 24 Hours: Laboratory Results - last 24 hr 12/03/19 12/03/19 12/03/19 Range/Units 12:43 13:26 13:43 WBC 11.2 H (4.5-11.0) K/uL RBC 4.55 (3.30-5.50) M/uL Hgb 12.7 (12.0-15.0) g/dL Hct 37.8 (36.0-48.0) % MCV 83 (80-98) fL MCH 28 (27-31) pg MCHC 34 (32-36) % Plt Count 313 (150-400) K/uL Neut % (Auto) 75 H (36-66) % Lymph % (Auto) 16 L (24-44) % [place] % (Auto) 8 H (2-6) % Eos % (Auto) 0 L (2-4) % Baso % (Auto) 0 (0-1) % Sodium (140-148) mmol/L Potassium (3.6-5.2) mmol/L Chloride (100-108) mmol/L Carbon Dioxide (21-32) mmol/L Anion Gap (5.0-14.0) mmol/L BUN (7-18) mg/dL Creatinine (0.6-1.0) mg/dL Est Cr Clr Drug Dosing mL/min Estimated GFR (MDRD) (>60) Glucose (74-106) mg/dL Calcium (8.5-10.1) mg/dL Total Bilirubin (0.2-1.0) mg/dL AST (15-37) U/L ALT (12-78) U/L Alkaline Phosphatase (46-116) U/L Lactate Dehydrogenase (82-234) U/L Total Protein (6.4-8.2) g/dL Albumin (3.4-5.0) g/dL Globulin (2.3-3.5) g/dL Albumin/Globulin Ratio (1.2-2.2) Urine Color Yellow (YELLOW) Urine Appearance Cloudy A (CLEAR) Urine pH 7.5 (5.0-8.0) Ur Specific [place] 1.020 (1.008-1.030) Urine Protein 30 H (NEGATIVE) mg/dL Urine Glucose (UA) Negative (NEGATIVE) mg/dL Urine Ketones Negative (NEGATIVE) mg/dL Urine Occult Blood Moderate H (NEGATIVE) Urine Nitrite Negative (NEGATIVE) Urine Bilirubin Negative (NEGATIVE) Urine Urobilinogen 0.2 (0.2-1.0) EU/dL Ur Leukocyte Esterase Small (NEGATIVE) Urine RBC 10-20 H (0-5) Urine WBC 20-30 H (0-5) Ur Epithelial Cells Many Amorphous Sediment Not seen Urine Bacteria Moderate Urine Mucus Not seen Ur Random Creatinine (20.0-370.0) mg/dL U Random Total Protein (6.0-11.9) mg/dL Protein/Creatinin Ratio (21.0-161.0) mg/g Urine Opiates Screen Negative (NEGATIVE) Ur Oxycodone Screen Negative (NEGATIVE) Urine Methadone Screen Negative (NEGATIVE) Ur Propoxyphene Screen Negative (NEGATIVE) Ur Barbiturates Screen Negative (NEGATIVE) Ur Tricyclics Screen Negative (NEGATIVE) Ur Phencyclidine Scrn Negative (NEGATIVE) Ur Amphetamine Screen Negative (NEGATIVE) U Methamphetamines Scrn Negative (NEGATIVE) Urine MDMA Screen Negative (NEGATIVE) U Benzodiazepines Scrn Negative (NEGATIVE) U Cocaine Metab Screen Negative (NEGATIVE) U Marijuana (THC) Screen Negative (NEGATIVE) 12/03/19 12/03/19 Range/Units 13:46 13:54 WBC (4.5-11.0) K/uL RBC (3.30-5.50) M/uL Hgb (12.0-15.0) g/dL Hct (36.0-48.0) % MCV (80-98) fL MCH (27-31) pg MCHC (32-36) % Plt Count (150-400) K/uL Neut % (Auto) (36-66) % Lymph % (Auto) (24-44) % [place] % (Auto) (2-6) % Eos % (Auto) (2-4) % Baso % (Auto) (0-1) % Sodium 136 L (140-148) mmol/L Potassium 4.0 (3.6-5.2) mmol/L Chloride 101 (100-108) mmol/L Carbon Dioxide 25 (21-32) mmol/L Anion Gap 14.0 (5.0-14.0) mmol/L BUN 7 (7-18) mg/dL Creatinine 0.6 (0.6-1.0) mg/dL Est Cr Clr Drug Dosing 115.33 mL/min Estimated GFR (MDRD) > 60 (>60) Glucose 83 (74-106) mg/dL Calcium 9.0 (8.5-10.1) mg/dL Total Bilirubin 0.3 (0.2-1.0) mg/dL AST 21 (15-37) U/L ALT 16 (12-78) U/L Alkaline Phosphatase 276 H D (46-116) U/L Lactate Dehydrogenase 168 (82-234) U/L Total Protein 6.9 (6.4-8.2) g/dL Albumin 2.9 L (3.4-5.0) g/dL Globulin 4.0 H (2.3-3.5) g/dL Albumin/Globulin Ratio 0.7 L (1.2-2.2) Urine Color (YELLOW) Urine Appearance (CLEAR) Urine pH (5.0-8.0) Ur Specific [place] (1.008-1.030) Urine Protein (NEGATIVE) mg/dL Urine Glucose (UA) (NEGATIVE) mg/dL Urine Ketones (NEGATIVE) mg/dL Urine Occult Blood (NEGATIVE) Urine Nitrite (NEGATIVE) Urine Bilirubin (NEGATIVE) Urine Urobilinogen (0.2-1.0) EU/dL Ur Leukocyte Esterase (NEGATIVE) Urine RBC (0-5) Urine WBC (0-5) Ur Epithelial Cells Amorphous Sediment Urine Bacteria Urine Mucus Ur Random Creatinine 163.0 (20.0-370.0) mg/dL U Random Total Protein 57.8 H (6.0-11.9) mg/dL Protein/Creatinin Ratio 354.6 H (21.0-161.0) mg/g Urine Opiates Screen (NEGATIVE) Ur Oxycodone Screen (NEGATIVE) Urine Methadone Screen (NEGATIVE) Ur Propoxyphene Screen (NEGATIVE) Ur Barbiturates Screen (NEGATIVE) Ur Tricyclics Screen (NEGATIVE) Ur Phencyclidine Scrn (NEGATIVE) Ur Amphetamine Screen (NEGATIVE) U Methamphetamines Scrn (NEGATIVE) Urine MDMA Screen (NEGATIVE) U Benzodiazepines Scrn (NEGATIVE) U Cocaine Metab Screen (NEGATIVE) U Marijuana (THC) Screen (NEGATIVE) Med Orders - Current: Current Medications Calcium Carbonate/Glycine (Tums) 1,000 mg PO Q2H PRN PRN Reason: Indigestion Ephedrine Sulfate (Ephedrine Sulfate) 10 mg IVPUSH ASDIRECTED PRN PRN Reason: Hypotension Lactated Ringer's (Ringers, Lactated) 1,000 mls @ 125 mls/hr IV ASDIRECTED MCKAY Oxytocin/Sodium Chloride (Pitocin In Ns 20 Units/1,000 Ml) 20 unit in 1,000 mls @ 2,997 mls/hr IV ASDIRECTED MCKAY; Protocol Ondansetron HCl (Zofran) 4 mg IV Q4H PRN PRN Reason: Nausea/Vomiting Last Admin: 12/03/19 20:18 Dose: 4 mg Sodium Chloride (Saline Flush) 10 ml FLUSH ASDIRECTED PRN PRN Reason: Keep Vein Open Discontinued Medications Lactated Ringer's (Ringers, Lactated) 1,000 mls @ 999 mls/hr IV .BOLUS ONE Stop: 12/03/19 19:35 Last Admin: 12/03/19 18:00 Dose: 999 mls/hr Ropivacaine (Naropin 0.2%) Confirm Administered Dose 100 mls @ as directed .ROUTE .STK-MED ONE Stop: 12/03/19 19:17 - Exam General: Alert, Oriented HEENT: Pupils Equal, Pupils Reactive, EOMI, Mucous Membr. Moist/[place] Neck: Supple Lungs: Clear to Auscultation, Normal Respiratory Effort Cardiovascular: Regular Rate, Regular Rhythm GI/Abdominal Exam: Normal Bowel Sounds, Soft, Non-Tender, No Organomegaly, No Distention, No Abnormal Bruit, No Mass, Pelvis Stable (Female) Exam: Normal External Exam, Normal Bimanual Exam, Cervical Dilatation, Enlarged Uterus, Vaginal Bleeding. No: Cervical Lesions, Vaginal Tears Back Exam: Normal Inspection, Full Range of Motion Extremities: Normal Inspection, Normal Range of Motion, Non-Tender, No Pedal Edema, Normal Capillary Refill Skin: Warm, Dry, Intact Neurological: No New Focal Deficit Psy/Mental Status: Alert, Normal Affect, Normal Mood - Problem List & Annotations (1) SNOMED Code(s): 19833125 Code(s): Z34.90 - ENCNTR FOR SUPRVSN OF NORMAL , UNSP, UNSP TRIMESTER Status: Acute Current Visit: Yes Qualifiers: Weeks of gestation: 40 weeks Qualified Code(s): Z3A.40 - 40 weeks gestation of (2) Pre-eclampsia affecting , antepartum SNOMED Code(s): 328800073, 351008537 Code(s): O14.90 - UNSPECIFIED PRE-ECLAMPSIA, UNSPECIFIED TRIMESTER Status: Acute Current Visit: Yes (3) Second degree perineal laceration SNOMED Code(s): 0191448 Code(s): O70.1 - SECOND DEGREE PERINEAL LACERATION DURING DELIVERY Status: Acute Current Visit: Yes (4) Perineal laceration involving labia SNOMED Code(s): 06714186 Code(s): S31.41XA - LACERATION W/O FOREIGN BODY OF VAGINA AND VULVA, INIT ENCNTR Status: Acute Current Visit: Yes (5) Vaginal delivery SNOMED Code(s): 295643235 Code(s): O80 - ENCOUNTER FOR FULL-TERM UNCOMPLICATED DELIVERY Status: Acute Current Visit: Yes - Problem List Review Problem List Initiated/Reviewed/Updated: Yes - My Orders Last 24 Hours: My Active Orders 12/03/19 13:26 Up ad Flory [RC] ASDIRECTED Calcium Carbonate [Tums] 1,000 mg PO Q2H PRN Ondansetron [Zofran] 4 mg IV Q4H PRN Sodium Chloride 0.9% [Saline Flush] 10 ml FLUSH ASDIRECTED PRN DVT/VTE Prophylaxis Reflex [OM.PC] Routine Resuscitation Status Routine 12/03/19 13:27 Patient Status [ADT] Routine Communication Order [RC] ASDIRECTED Notify Provider [RC] PRN Vital Signs [RC] PER UNIT ROUTINE Saline Lock Insert [OM.PC] Routine 12/03/19 13:28 Notify Provider Vital Signs [RC] PRN 12/03/19 13:29 VTE/DVT Education [RC] Click to Edit 12/03/19 13:30 Lactated Ringers [Ringers, Lactated] 1,000 ml IV ASDIRECTED 12/03/19 18:35 Communication Order [RC] ASDIRECTED Local Anesthetic Infusion Pump [RC] ASDIRECTED PCEA Epidural [RC] ASDIRECTED PCEA Epidural [RC] ASDIRECTED Urinary Catheter Assessment [RC] ASDIRECTED ePHEDrine [ePHEDrine sulfate] 10 mg IVPUSH ASDIRECTED PRN Epidural Catheter Management [OM.PC] Urgent 12/03/19 18:45 Insert Urinary Catheter [OM.PC] ASDIRECTED 12/03/19 19:30 Oxytocin/Normal Saline [Pitocin in NS 20 Units/1,000 ML] 20 unit in 1,000 ml IV ASDIRECTED 12/03/19 22:31 Patient Status [ADT] Routine May Shower [RC] ASDIRECTED Vital Signs [RC] PFP Consult to Cheese Sprayer [CONS] Routine Benzocaine [[id number] 20% [place]] See Dose Instructions TOP Q4H PRN Docusate Sodium [Colace] 100 mg PO BID PRN Lanolin [Lansinoh HPA] 1 gm TOP ASDIRECTED PRN Measles, Mumps & Rubella [M-M-R II Vaccine] 0.5 ml SUBCUT .ONCE ONE witch Reji [Tucks] 1 pad TOP ASDIRECTED PRN Assess Lochia [WOMSER] Per Unit Routine Assess Uterine Involution [WOMSER] Per Unit Routine 12/03/19 22:33 Ice Therapy [OM.PC] Per Unit Routine Perineal Care [OM.PC] Per Unit Routine Sitz Bath [OM.PC] Per Unit Routine 12/03/19 Lunch Regular Diet [DIET] 12/04/19 05:11 CBC WITH AUTO DIFF [HEME] AM - Assessment Assessment:: 12/03/19 vaginal delivery of female 2nd degree laceration that extended right and left Right low labial laceration EBL 350ml Plans to breastfeed Preeclampsia, blood pressures monitored closely in labor - Plan Plan:: 6/1/20 Assessment: 24 yo at 40 1/7 weeks here in latent labor GBS negative Elevated blood pressures, UA positive for protein, LDH normal, platelets normal , liver enzymes normal O pos blood type Rubella NON-immune Plan: Anticipate Admit due to cervical dilation, contractions, and elevated blood pressure Will recheck cervical dilation and consider AROM if patient requests 12/03/19 Routine cares Perineal cares Support Anticipate 24-48 hour stay
[2019-12-03] MEDS ORDERED: Ibuprofen 200 MG Tab, 24 Tab Bulk Bottle PO PRN (23:59)
[2019-12-03] MEDS ORDERED: Acetaminophen 325 MG Tab, 50 Tab Bulk Bottle PO PRN (23:59)
--- NOTE | 2019-12-04 08:24 | PCM.PNPP ---
- General Info Date of Service: 12/04/19 Functional Status: Reports: Pain Controlled - Review of Systems General: Reports: No Symptoms HEENT: Reports: No Symptoms Pulmonary: Reports: No Symptoms Cardiovascular: Reports: No Symptoms Gastrointestinal: Reports: No Symptoms Genitourinary: Reports: No Symptoms Musculoskeletal: Reports: No Symptoms Skin: Reports: No Symptoms Neurological: Reports: No Symptoms Psychiatric: Reports: No Symptoms - General Info Date of Service: 12/04/19 - Patient Data Vital Signs - Most Recent: Last Vital Signs Temp 36.6 C 12/04/19 07:11 Pulse 91 12/04/19 07:11 Resp 18 12/04/19 07:11 BP 110/62 12/04/19 07:11 Pulse Ox 96 12/04/19 07:11 Weight - Most Recent: 104.326 kg I&O - Last 24 Hours: Intake & Output 12/03/19 12/04/19 12/04/19 22:59 06:59 14:59 Intake Total 3000 Output Total 100 300 Balance -100 2700 Lab Results - Last 24 Hours: Laboratory Results - last 24 hr 12/03/19 12/03/19 12/03/19 Range/Units 12:43 13:26 13:43 WBC 11.2 H (4.5-11.0) K/uL RBC 4.55 (3.30-5.50) M/uL Hgb 12.7 (12.0-15.0) g/dL Hct 37.8 (36.0-48.0) % MCV 83 (80-98) fL MCH 28 (27-31) pg MCHC 34 (32-36) % Plt Count 313 (150-400) K/uL Neut % (Auto) 75 H (36-66) % Lymph % (Auto) 16 L (24-44) % [place] % (Auto) 8 H (2-6) % Eos % (Auto) 0 L (2-4) % Baso % (Auto) 0 (0-1) % Sodium (140-148) mmol/L Potassium (3.6-5.2) mmol/L Chloride (100-108) mmol/L Carbon Dioxide (21-32) mmol/L Anion Gap (5.0-14.0) mmol/L BUN (7-18) mg/dL Creatinine (0.6-1.0) mg/dL Est Cr Clr Drug Dosing mL/min Estimated GFR (MDRD) (>60) Glucose (74-106) mg/dL Calcium (8.5-10.1) mg/dL Total Bilirubin (0.2-1.0) mg/dL AST (15-37) U/L ALT (12-78) U/L Alkaline Phosphatase (46-116) U/L Lactate Dehydrogenase (82-234) U/L Total Protein (6.4-8.2) g/dL Albumin (3.4-5.0) g/dL Globulin (2.3-3.5) g/dL Albumin/Globulin Ratio (1.2-2.2) Urine Color Yellow (YELLOW) Urine Appearance Cloudy A (CLEAR) Urine pH 7.5 (5.0-8.0) Ur Specific [place] 1.020 (1.008-1.030) Urine Protein 30 H (NEGATIVE) mg/dL Urine Glucose (UA) Negative (NEGATIVE) mg/dL Urine Ketones Negative (NEGATIVE) mg/dL Urine Occult Blood Moderate H (NEGATIVE) Urine Nitrite Negative (NEGATIVE) Urine Bilirubin Negative (NEGATIVE) Urine Urobilinogen 0.2 (0.2-1.0) EU/dL Ur Leukocyte Esterase Small (NEGATIVE) Urine RBC 10-20 H (0-5) Urine WBC 20-30 H (0-5) Ur Epithelial Cells Many Amorphous Sediment Not seen Urine Bacteria Moderate Urine Mucus Not seen Ur Random Creatinine (20.0-370.0) mg/dL U Random Total Protein (6.0-11.9) mg/dL Protein/Creatinin Ratio (21.0-161.0) mg/g Urine Opiates Screen Negative (NEGATIVE) Ur Oxycodone Screen Negative (NEGATIVE) Urine Methadone Screen Negative (NEGATIVE) Ur Propoxyphene Screen Negative (NEGATIVE) Ur Barbiturates Screen Negative (NEGATIVE) Ur Tricyclics Screen Negative (NEGATIVE) Ur Phencyclidine Scrn Negative (NEGATIVE) Ur Amphetamine Screen Negative (NEGATIVE) U Methamphetamines Scrn Negative (NEGATIVE) Urine MDMA Screen Negative (NEGATIVE) U Benzodiazepines Scrn Negative (NEGATIVE) U Cocaine Metab Screen Negative (NEGATIVE) U Marijuana (THC) Screen Negative (NEGATIVE) 12/03/19 12/03/19 12/04/19 Range/Units 13:46 13:54 04:55 WBC 19.2 H (4.5-11.0) K/uL RBC 3.96 (3.30-5.50) M/uL Hgb 10.9 L (12.0-15.0) g/dL Hct 33.2 L (36.0-48.0) % MCV 84 (80-98) fL MCH 28 (27-31) pg MCHC 33 (32-36) % Plt Count 290 (150-400) K/uL Neut % (Auto) 81 H (36-66) % Lymph % (Auto) 11 L (24-44) % [place] % (Auto) 8 H (2-6) % Eos % (Auto) 0 L (2-4) % Baso % (Auto) 0 (0-1) % Sodium 136 L (140-148) mmol/L Potassium 4.0 (3.6-5.2) mmol/L Chloride 101 (100-108) mmol/L Carbon Dioxide 25 (21-32) mmol/L Anion Gap 14.0 (5.0-14.0) mmol/L BUN 7 (7-18) mg/dL Creatinine 0.6 (0.6-1.0) mg/dL Est Cr Clr Drug Dosing 115.33 mL/min Estimated GFR (MDRD) > 60 (>60) Glucose 83 (74-106) mg/dL Calcium 9.0 (8.5-10.1) mg/dL Total Bilirubin 0.3 (0.2-1.0) mg/dL AST 21 (15-37) U/L ALT 16 (12-78) U/L Alkaline Phosphatase 276 H D (46-116) U/L Lactate Dehydrogenase 168 (82-234) U/L Total Protein 6.9 (6.4-8.2) g/dL Albumin 2.9 L (3.4-5.0) g/dL Globulin 4.0 H (2.3-3.5) g/dL Albumin/Globulin Ratio 0.7 L (1.2-2.2) Urine Color (YELLOW) Urine Appearance (CLEAR) Urine pH (5.0-8.0) Ur Specific [place] (1.008-1.030) Urine Protein (NEGATIVE) mg/dL Urine Glucose (UA) (NEGATIVE) mg/dL Urine Ketones (NEGATIVE) mg/dL Urine Occult Blood (NEGATIVE) Urine Nitrite (NEGATIVE) Urine Bilirubin (NEGATIVE) Urine Urobilinogen (0.2-1.0) EU/dL Ur Leukocyte Esterase (NEGATIVE) Urine RBC (0-5) Urine WBC (0-5) Ur Epithelial Cells Amorphous Sediment Urine Bacteria Urine Mucus Ur Random Creatinine 163.0 (20.0-370.0) mg/dL U Random Total Protein 57.8 H (6.0-11.9) mg/dL Protein/Creatinin Ratio 354.6 H (21.0-161.0) mg/g Urine Opiates Screen (NEGATIVE) Ur Oxycodone Screen (NEGATIVE) Urine Methadone Screen (NEGATIVE) Ur Propoxyphene Screen (NEGATIVE) Ur Barbiturates Screen (NEGATIVE) Ur Tricyclics Screen (NEGATIVE) Ur Phencyclidine Scrn (NEGATIVE) Ur Amphetamine Screen (NEGATIVE) U Methamphetamines Scrn (NEGATIVE) Urine MDMA Screen (NEGATIVE) U Benzodiazepines Scrn (NEGATIVE) U Cocaine Metab Screen (NEGATIVE) U Marijuana (THC) Screen (NEGATIVE) Med Orders - Current: Current Medications Acetaminophen (Tylenol Bulk Bottle) 0 mg PO Q4H PRN PRN Reason: Pain Last Admin: 12/04/19 00:32 Dose: 650 mg Benzocaine ([id number] 20% [place]) 0 gm TOP Q4H PRN PRN Reason: Perineal Comfort Measure Last Admin: 12/04/19 00:30 Dose: 1 applic Calcium Carbonate/Glycine (Tums) 1,000 mg PO Q2H PRN PRN Reason: Indigestion Docusate Sodium (Colace) 100 mg PO BID PRN PRN Reason: Constipation Emollient Ointment (Lansinoh Hpa) 1 gm TOP ASDIRECTED PRN PRN Reason: Sore Nipples Last Admin: 12/04/19 00:30 Dose: 1 applic Ephedrine Sulfate (Ephedrine Sulfate) 10 mg IVPUSH ASDIRECTED PRN PRN Reason: Hypotension Lactated Ringer's (Ringers, Lactated) 1,000 mls @ 125 mls/hr IV ASDIRECTED MCKAY Last Admin: 12/03/19 19:30 Dose: 125 mls/hr Oxytocin/Sodium Chloride (Pitocin In Ns 20 Units/1,000 Ml) 20 unit in 1,000 mls @ 2,997 mls/hr IV ASDIRECTED MCKAY; Protocol Last Admin: 12/03/19 21:12 Dose: 999 munits/min, 2,997 mls/hr Ibuprofen (Motrin Bulk Bottle) 600 mg PO Q6H PRN PRN Reason: Pain Last Admin: 12/04/19 00:31 Dose: 600 mg Measles/Mumps/Rubella Vaccine Live (M-M-R Ii Vaccine) 0.5 ml SUBCUT .ONCE ONE Stop: 12/04/19 10:01 Ondansetron HCl (Zofran) 4 mg IV Q4H PRN PRN Reason: Nausea/Vomiting Last Admin: 12/03/19 20:18 Dose: 4 mg Sodium Chloride (Saline Flush) 10 ml FLUSH ASDIRECTED PRN PRN Reason: Keep Vein Open Witch Reji (Tucks) 1 pad TOP ASDIRECTED PRN PRN Reason: Hemorrhoids Last Admin: 12/04/19 00:30 Dose: 1 pad Discontinued Medications Lactated Ringer's (Ringers, Lactated) 1,000 mls @ 999 mls/hr IV .BOLUS ONE Stop: 12/03/19 19:35 Last Admin: 12/03/19 18:00 Dose: 999 mls/hr Ropivacaine (Naropin 0.2%) Confirm Administered Dose 100 mls @ as directed .ROUTE .STK-MED ONE Stop: 12/03/19 19:17 - Interaction Disposition, : in Room with Family Interaction: Holding Infant Feeding: Breastfed Infant; Nursed Well Support Person: Significant Other - Recovery Exam Fundal Tone: Firm Fundal Level: 1 Fingerbreadths Above Umbilicus Fundal Placement: Midline Lochia Amount: Moderate Lochia Color: Rubra/Red Perineum Description: Edematous Episiotomy/Laceration: Approximated Bladder Status: Voiding Urinary Elimination: Voided - Exam General: Alert, Oriented HEENT: Pupils Equal Neck: Supple Lungs: Clear to Auscultation, Normal Respiratory Effort Cardiovascular: Regular Rate, Regular Rhythm GI/Abdominal Exam: Normal Bowel Sounds, Soft, Non-Tender, Pelvis Stable Extremities: Normal Inspection, Normal Range of Motion, Non-Tender, No Pedal Edema, Normal Capillary Refill, Pedal Edema Skin: Warm, Dry, Intact Neurological: No New Focal Deficit Psy/Mental Status: Alert, Normal Affect, Normal Mood - Problem List & Annotations (1) SNOMED Code(s): 94523872 Code(s): Z34.90 - ENCNTR FOR SUPRVSN OF NORMAL , UNSP, UNSP TRIMESTER Status: Acute Current Visit: Yes Qualifiers: Weeks of gestation: 40 weeks Qualified Code(s): Z3A.40 - 40 weeks gestation of (2) Pre-eclampsia affecting , antepartum SNOMED Code(s): 565166084, 050950891 Code(s): O14.90 - UNSPECIFIED PRE-ECLAMPSIA, UNSPECIFIED TRIMESTER Status: Acute Current Visit: Yes (3) Second degree perineal laceration SNOMED Code(s): 7765670 Code(s): O70.1 - SECOND DEGREE PERINEAL LACERATION DURING DELIVERY Status: Acute Current Visit: Yes (4) Perineal laceration involving labia SNOMED Code(s): 47481763 Code(s): S31.41XA - LACERATION W/O FOREIGN BODY OF VAGINA AND VULVA, INIT ENCNTR Status: Acute Current Visit: Yes (5) Vaginal delivery SNOMED Code(s): 382285370 Code(s): O80 - ENCOUNTER FOR FULL-TERM UNCOMPLICATED DELIVERY Status: Acute Current Visit: Yes - Problem List Review Problem List Initiated/Reviewed/Updated: Yes - My Orders Last 24 Hours: My Active Orders 12/03/19 13:26 Up ad Flory [RC] ASDIRECTED Calcium Carbonate [Tums] 1,000 mg PO Q2H PRN Ondansetron [Zofran] 4 mg IV Q4H PRN Sodium Chloride 0.9% [Saline Flush] 10 ml FLUSH ASDIRECTED PRN DVT/VTE Prophylaxis Reflex [OM.PC] Routine Resuscitation Status Routine 12/03/19 13:27 Patient Status [ADT] Routine Notify Provider [RC] PRN Vital Signs [RC] PER UNIT ROUTINE Saline Lock Insert [OM.PC] Routine 12/03/19 13:28 Notify Provider Vital Signs [RC] PRN 12/03/19 13:29 VTE/DVT Education [RC] Click to Edit 12/03/19 13:30 Lactated Ringers [Ringers, Lactated] 1,000 ml IV ASDIRECTED 12/03/19 18:35 Local Anesthetic Infusion Pump [RC] ASDIRECTED ePHEDrine [ePHEDrine sulfate] 10 mg IVPUSH ASDIRECTED PRN Epidural Catheter Management [OM.PC] Urgent 12/03/19 18:45 Insert Urinary Catheter [OM.PC] ASDIRECTED 12/03/19 19:30 Oxytocin/Normal Saline [Pitocin in NS 20 Units/1,000 ML] 20 unit in 1,000 ml IV ASDIRECTED 12/03/19 22:31 Patient Status [ADT] Routine May Shower [RC] ASDIRECTED Vital Signs [RC] PFP Consult to Accident Report Clerk [CONS] Routine Benzocaine [Zwkb-R-Zrsuepi 20% [place]] See Dose Instructions TOP Q4H PRN Docusate Sodium [Colace] 100 mg PO BID PRN Lanolin [Lansinoh HPA] 1 gm TOP ASDIRECTED PRN witch Reji [Tucks] 1 pad TOP ASDIRECTED PRN Assess Lochia [WOMSER] Per Unit Routine Assess Uterine Involution [WOMSER] Per Unit Routine 12/03/19 22:33 Ice Therapy [OM.PC] Per Unit Routine Perineal Care [OM.PC] Per Unit Routine Sitz Bath [OM.PC] Per Unit Routine 12/03/19 23:59 Acetaminophen [Tylenol Bulk Bottle] See Dose Instructions PO Q4H PRN Ibuprofen [Motrin Bulk Bottle] 600 mg PO Q6H PRN 12/03/19 Lunch Regular Diet [DIET] 12/04/19 10:00 Measles, Mumps & Rubella [M-M-R II Vaccine] 0.5 ml SUBCUT .ONCE ONE - Assessment Assessment:: 12/03/19 vaginal delivery of female 2nd degree laceration that extended right and left Right low labial laceration EBL 350ml Plans to breastfeed Preeclampsia, blood pressures monitored closely in labor 12/04/19 Day 1 Lacerations are well approximated, no hematoma, perineum and vaginal vault palpated and no pitting or holes felt Pain is well controlled Voiding BP stable Hgb 10.9 WBC 19.2 - Plan Plan:: 12/03/19 Assessment: 24 yo at 40 1/7 weeks here in latent labor GBS negative Elevated blood pressures, UA positive for protein, LDH normal, platelets normal , liver enzymes normal O pos blood type Rubella NON-immune Plan: Anticipate Admit due to cervical dilation, contractions, and elevated blood pressure Will recheck cervical dilation and consider AROM if patient requests 12/03/19 Routine cares Perineal cares Support Anticipate 24-48 hour stay 12/04/19 Routine cares support Perineal cares Recheck WBC tomorrow am Anticipate discharge home tomorrow
--- NOTE | 2019-12-04 08:54 | PCM.SN.2 ---
- Free Text/Narrative Note: 12/04/19 2 g Rocephin IV one time and Flagyl 500 mg po BID ordered due to WBC and extending second degree laceration. Suspicious for bacterial vaginosis due to odor. Patient is afebrile and pain is controlled.
[2019-12-04] MEDS ORDERED: cefTRIAXone 2 GM in Sodium Chloride 0.9% 50 ML IV ONE (09:00)
[2019-12-04] MEDS ORDERED: Measles, Mumps & Rubella Vaccine 0.5 ML SDV SUBCUT ONE (10:00)
[2019-12-04] MEDS: metroNIDAZOLE 250 MG Tab PO SCH ×2 (10:21→20:05)
[2019-12-04] MEDS: Docusate Sodium 100 MG Cap PO PRN (20:04)
--- NOTE | 2019-12-05 08:36 | PCM.PNPP ---
- General Info Date of Service: 12/05/19 Functional Status: Reports: Pain Controlled - Review of Systems General: Reports: No Symptoms HEENT: Reports: No Symptoms Pulmonary: Reports: No Symptoms Cardiovascular: Reports: No Symptoms Gastrointestinal: Reports: No Symptoms Genitourinary: Reports: No Symptoms Musculoskeletal: Reports: No Symptoms Skin: Reports: No Symptoms Neurological: Reports: No Symptoms Psychiatric: Reports: No Symptoms - General Info Date of Service: 12/05/19 - Patient Data Vital Signs - Most Recent: Last Vital Signs Temp 36.5 C 12/05/19 08:01 Pulse 83 12/05/19 08:01 Resp 18 12/05/19 08:01 BP 125/78 12/05/19 08:01 Pulse Ox 95 12/05/19 08:01 Weight - Most Recent: 104.326 kg I&O - Last 24 Hours: Intake & Output 12/04/19 12/05/19 12/05/19 22:59 06:59 14:59 Intake Total 480 Balance 480 Lab Results - Last 24 Hours: Laboratory Results - last 24 hr 12/05/19 Range/Units 04:55 WBC 12.2 H (4.5-11.0) K/uL RBC 3.63 (3.30-5.50) M/uL Hgb 10.1 L (12.0-15.0) g/dL Hct 31.2 L (36.0-48.0) % MCV 86 (80-98) fL MCH 28 (27-31) pg MCHC 32 (32-36) % Plt Count 278 (150-400) K/uL Neut % (Auto) 68 H (36-66) % Lymph % (Auto) 24 (24-44) % [place] % (Auto) 7 H (2-6) % Eos % (Auto) 1 L (2-4) % Baso % (Auto) 0 (0-1) % Med Orders - Current: Current Medications Acetaminophen (Tylenol Bulk Bottle) 0 mg PO Q4H PRN PRN Reason: Pain Last Admin: 12/04/19 00:32 Dose: 650 mg Benzocaine (Mkaf-E-[place] 20% [place]) 0 gm TOP Q4H PRN PRN Reason: Perineal Comfort Measure Last Admin: 12/04/19 00:30 Dose: 1 applic Calcium Carbonate/Glycine (Tums) 1,000 mg PO Q2H PRN PRN Reason: Indigestion Docusate Sodium (Colace) 100 mg PO BID PRN PRN Reason: Constipation Last Admin: 12/04/19 20:04 Dose: 100 mg Emollient Ointment (Lansinoh Hpa) 1 gm TOP ASDIRECTED PRN PRN Reason: Sore Nipples Last Admin: 12/04/19 00:30 Dose: 1 applic Ephedrine Sulfate (Ephedrine Sulfate) 10 mg IVPUSH ASDIRECTED PRN PRN Reason: Hypotension Lactated Ringer's (Ringers, Lactated) 1,000 mls @ 125 mls/hr IV ASDIRECTED MCKAY Last Admin: 12/03/19 19:30 Dose: 125 mls/hr Oxytocin/Sodium Chloride (Pitocin In Ns 20 Units/1,000 Ml) 20 unit in 1,000 mls @ 2,997 mls/hr IV ASDIRECTED MCKAY; Protocol Last Admin: 12/03/19 21:12 Dose: 999 munits/min, 2,997 mls/hr Ibuprofen (Motrin Bulk Bottle) 600 mg PO Q6H PRN PRN Reason: Pain Last Admin: 12/04/19 00:31 Dose: 600 mg Metronidazole (Metronidazole) 500 mg PO Q12H MCKAY Last Admin: 12/04/19 20:05 Dose: 500 mg Ondansetron HCl (Zofran) 4 mg IV Q4H PRN PRN Reason: Nausea/Vomiting Last Admin: 12/03/19 20:18 Dose: 4 mg Sodium Chloride (Saline Flush) 10 ml FLUSH ASDIRECTED PRN PRN Reason: Keep Vein Open Witch Pam (Tucks) 1 pad TOP ASDIRECTED PRN PRN Reason: Hemorrhoids Last Admin: 12/04/19 00:30 Dose: 1 pad Discontinued Medications Lactated Ringer's (Ringers, Lactated) 1,000 mls @ 999 mls/hr IV .BOLUS ONE Stop: 12/03/19 19:35 Last Admin: 12/03/19 18:00 Dose: 999 mls/hr Ropivacaine (Naropin 0.2%) Confirm Administered Dose 100 mls @ as directed .ROUTE .STK-MED ONE Stop: 12/03/19 19:17 Ceftriaxone Sodium 2 gm/ (Sodium Chloride) 50 mls @ 100 mls/hr IV ONETIME ONE Stop: 12/04/19 09:29 Last Admin: 12/04/19 08:58 Dose: 100 mls/hr Measles/Mumps/Rubella Vaccine Live (M-M-R Ii Vaccine) 0.5 ml SUBCUT .ONCE ONE Stop: 12/04/19 10:01 Last Admin: 12/04/19 11:14 Dose: 0.5 ml - Infant Interaction Infant Disposition, : [place] in Room with Family Interaction: Holding Feeding: Attempted ; Nursed Fair/Poor Support Person: Significant Other - Recovery Exam Fundal Tone: Firms with Massage Fundal Level: 1 Fingerbreadths Below Umbilicus Fundal Placement: Midline Lochia Amount: Scant Lochia Color: Brownish Perineum Description: Intact, Minimal Bruising/Swelling Episiotomy/Laceration: Approximated Bladder Status: Voiding Urinary Elimination: Voided - Exam General: Alert, Oriented HEENT: Pupils Equal, Pupils Reactive, Mucous Membr. Moist/[place] Neck: Supple Lungs: Clear to Auscultation, Normal Respiratory Effort Cardiovascular: Regular Rate, Regular Rhythm GI/Abdominal Exam: Normal Bowel Sounds, Soft, Non-Tender, Pelvis Stable Extremities: Normal Inspection, Normal Range of Motion, Non-Tender, No Pedal Edema, Normal Capillary Refill Skin: Warm, Dry, Intact Neurological: No New Focal Deficit Psy/Mental Status: Alert, Normal Affect, Normal Mood - Problem List & Annotations (1) SNOMED Code(s): 05041729 Code(s): Z34.90 - ENCNTR FOR SUPRVSN OF NORMAL , UNSP, UNSP TRIMESTER Status: Acute Current Visit: Yes Qualifiers: Weeks of gestation: 40 weeks Qualified Code(s): Z3A.40 - 40 weeks gestation of (2) Pre-eclampsia affecting , antepartum SNOMED Code(s): 428717825, 691814700 Code(s): O14.90 - UNSPECIFIED PRE-ECLAMPSIA, UNSPECIFIED TRIMESTER Status: Acute Current Visit: Yes (3) Second degree perineal laceration SNOMED Code(s): 2311569 Code(s): O70.1 - SECOND DEGREE PERINEAL LACERATION DURING DELIVERY Status: Acute Current Visit: Yes (4) Perineal laceration involving labia SNOMED Code(s): 37533902 Code(s): S31.41XA - LACERATION W/O FOREIGN BODY OF VAGINA AND VULVA, INIT ENCNTR Status: Acute Current Visit: Yes (5) Vaginal delivery SNOMED Code(s): 986538630 Code(s): O80 - ENCOUNTER FOR FULL-TERM UNCOMPLICATED DELIVERY Status: Acute Current Visit: Yes - Problem List Review Problem List Initiated/Reviewed/Updated: Yes - My Orders Last 24 Hours: My Active Orders 12/04/19 08:44 Dietary Supplements [RC] BIDMEALS 12/04/19 09:00 metroNIDAZOLE 500 mg PO Q12H - Assessment Assessment:: 12/03/19 vaginal delivery of female 2nd degree laceration that extended right and left Right low labial laceration EBL 350ml Plans to breastfeed Preeclampsia, blood pressures monitored closely in labor 12/04/19 Day 1 Lacerations are well approximated, no hematoma, perineum and vaginal vault palpated and no pitting or holes felt Pain is well controlled Voiding BP stable Hgb 10.9 WBC 19.2 12/05/19 Day 2 Pain well controlled Elevated BP last evening and night, will continue to monitor, asymptomatic WBC 12.2 Hgb 10.1 Very fatigued and is having some difficulty with - Plan Plan:: 12/03/19 Assessment: 24 yo at 40 1/7 weeks here in latent labor GBS negative Elevated blood pressures, UA positive for protein, LDH normal, platelets normal , liver enzymes normal O pos blood type Rubella NON-immune Plan: Anticipate Admit due to cervical dilation, contractions, and elevated blood pressure Will recheck cervical dilation and consider AROM if patient requests 12/03/19 Routine cares Perineal cares Support Anticipate 24-48 hour stay 12/04/19 Routine cares support Perineal cares Recheck WBC tomorrow am Anticipate discharge home tomorrow 12/05/19 Routine cares support, support both breast and bottle today Anticipate discharge tomorrow, staying today to reinforce education and continue to support and help with No more IV antibiotics, will continue Flagyl for suspected BV
[2019-12-05] MEDS: metroNIDAZOLE 250 MG Tab PO SCH ×2 (11:02→20:07)
[2019-12-05] MEDS: Docusate Sodium 100 MG Cap PO PRN (20:08)
--- NOTE | 2019-12-06 08:41 | PCM.PNPP ---
- General Info Date of Service: 12/06/19 Functional Status: Reports: Pain Controlled - Review of Systems General: Reports: No Symptoms HEENT: Reports: No Symptoms Pulmonary: Reports: No Symptoms Cardiovascular: Reports: No Symptoms Gastrointestinal: Reports: No Symptoms Genitourinary: Reports: No Symptoms Musculoskeletal: Reports: No Symptoms Skin: Reports: No Symptoms Neurological: Reports: No Symptoms Psychiatric: Reports: No Symptoms - General Info Date of Service: 12/06/19 - Patient Data Vital Signs - Most Recent: Last Vital Signs Temp 36.5 C 12/06/19 00:50 Pulse 93 12/06/19 00:50 Resp 16 12/06/19 00:50 BP 144/85 H 12/06/19 00:50 Pulse Ox 97 12/06/19 00:50 Weight - Most Recent: 104.326 kg I&O - Last 24 Hours: Intake & Output 12/05/19 12/06/19 12/06/19 22:59 06:59 14:59 Intake Total 600 1500 Balance 600 1500 Med Orders - Current: Current Medications Acetaminophen (Tylenol Bulk Bottle) 0 mg PO Q4H PRN PRN Reason: Pain Last Admin: 12/04/19 00:32 Dose: 650 mg Benzocaine (Dnbf-F-Igfpzpb 20% [place]) 0 gm TOP Q4H PRN PRN Reason: Perineal Comfort Measure Last Admin: 12/04/19 00:30 Dose: 1 applic Calcium Carbonate/Glycine (Tums) 1,000 mg PO Q2H PRN PRN Reason: Indigestion Docusate Sodium (Colace) 100 mg PO BID PRN PRN Reason: Constipation Last Admin: 12/05/19 20:08 Dose: 100 mg Emollient Ointment (Lansinoh Hpa) 1 gm TOP ASDIRECTED PRN PRN Reason: Sore Nipples Last Admin: 12/04/19 00:30 Dose: 1 applic Ephedrine Sulfate (Ephedrine Sulfate) 10 mg IVPUSH ASDIRECTED PRN PRN Reason: Hypotension Lactated Ringer's (Ringers, Lactated) 1,000 mls @ 125 mls/hr IV ASDIRECTED MCKAY Last Admin: 12/03/19 19:30 Dose: 125 mls/hr Ibuprofen (Motrin Bulk Bottle) 600 mg PO Q6H PRN PRN Reason: Pain Last Admin: 12/04/19 00:31 Dose: 600 mg Metronidazole (Metronidazole) 500 mg PO Q12H MCKAY Last Admin: 12/05/19 20:07 Dose: 500 mg Ondansetron HCl (Zofran) 4 mg IV Q4H PRN PRN Reason: Nausea/Vomiting Last Admin: 12/03/19 20:18 Dose: 4 mg Sodium Chloride (Saline Flush) 10 ml FLUSH ASDIRECTED PRN PRN Reason: Keep Vein Open Witch Pam (Tucks) 1 pad TOP ASDIRECTED PRN PRN Reason: Hemorrhoids Last Admin: 12/04/19 00:30 Dose: 1 pad Discontinued Medications Lactated Ringer's (Ringers, Lactated) 1,000 mls @ 999 mls/hr IV .BOLUS ONE Stop: 12/03/19 19:35 Last Admin: 12/03/19 18:00 Dose: 999 mls/hr Ropivacaine (Naropin 0.2%) Confirm Administered Dose 100 mls @ as directed .ROUTE .STK-MED ONE Stop: 12/03/19 19:17 Oxytocin/Sodium Chloride (Pitocin In Ns 20 Units/1,000 Ml) 20 unit in 1,000 mls @ 2,997 mls/hr IV ASDIRECTED MCKAY; Protocol Last Admin: 12/03/19 21:12 Dose: 999 munits/min, 2,997 mls/hr Ceftriaxone Sodium 2 gm/ (Sodium Chloride) 50 mls @ 100 mls/hr IV ONETIME ONE Stop: 12/04/19 09:29 Last Admin: 12/04/19 08:58 Dose: 100 mls/hr Measles/Mumps/Rubella Vaccine Live (M-M-R Ii Vaccine) 0.5 ml SUBCUT .ONCE ONE Stop: 12/04/19 10:01 Last Admin: 12/04/19 11:14 Dose: 0.5 ml - Infant Interaction Disposition, : in Room with Family Interaction: Holding Infant Infant Feeding: Attempted ; Nursed Fair/Poor Support Person: Significant Other - Recovery Exam Fundal Tone: Firm Fundal Level: At Umbilicus Fundal Placement: Midline Lochia Amount: Small Lochia Color: Brownish Perineum Description: Intact, Minimal Bruising/Swelling Episiotomy/Laceration: Approximated Bladder Status: Nonpalpable Urinary Elimination: Voided - Exam General: Alert, Oriented HEENT: Pupils Equal, Pupils Reactive, Mucous Membr. Moist/[place] Neck: Supple Lungs: Clear to Auscultation, Normal Respiratory Effort Cardiovascular: Regular Rate, Regular Rhythm GI/Abdominal Exam: Normal Bowel Sounds, Soft, Non-Tender, No Organomegaly, No Distention, No Mass, Pelvis Stable Extremities: Normal Inspection, Normal Range of Motion, Non-Tender, No Pedal Edema, Normal Capillary Refill Skin: Warm, Dry, Intact Neurological: No New Focal Deficit Psy/Mental Status: Alert, Normal Affect, Normal Mood - Problem List & Annotations (1) SNOMED Code(s): 74293155 Code(s): Z34.90 - ENCNTR FOR SUPRVSN OF NORMAL , UNSP, UNSP TRIMESTER Status: Acute Current Visit: Yes Qualifiers: Weeks of gestation: 40 weeks Qualified Code(s): Z3A.40 - 40 weeks gestation of (2) Pre-eclampsia affecting , antepartum SNOMED Code(s): 779167120, 206448059 Code(s): O14.90 - UNSPECIFIED PRE-ECLAMPSIA, UNSPECIFIED TRIMESTER Status: Acute Current Visit: Yes (3) Second degree perineal laceration SNOMED Code(s): 2855444 Code(s): O70.1 - SECOND DEGREE PERINEAL LACERATION DURING DELIVERY Status: Acute Current Visit: Yes (4) Perineal laceration involving labia SNOMED Code(s): 87645873 Code(s): S31.41XA - LACERATION W/O FOREIGN BODY OF VAGINA AND VULVA, INIT ENCNTR Status: Acute Current Visit: Yes (5) Vaginal delivery SNOMED Code(s): 653212464 Code(s): O80 - ENCOUNTER FOR FULL-TERM UNCOMPLICATED DELIVERY Status: Acute Current Visit: Yes - Problem List Review Problem List Initiated/Reviewed/Updated: Yes - Assessment Assessment:: 12/03/19 vaginal delivery of female 2nd degree laceration that extended right and left Right low labial laceration EBL 350ml Plans to breastfeed Preeclampsia, blood pressures monitored closely in labor 12/04/19 Day 1 Lacerations are well approximated, no hematoma, perineum and vaginal vault palpated and no pitting or holes felt Pain is well controlled Voiding BP stable Hgb 10.9 WBC 19.2 12/05/19 Day 2 Pain well controlled Elevated BP last evening and night, will continue to monitor, asymptomatic WBC 12.2 Hgb 10.1 Very fatigued and is having some difficulty with 12/06/19 Day 3 , no complications FF and bleeding light Again a couple of elevated BP's, inappropriate cuff size was being used and it was also reported patient was upset and crying during the elevated blood pressure reading, this morning blood pressure good and pt asymptomatic. She was taught warning s/s such as headache and blurred vision. going much better, did not supplement Pain controlled, voiding without difficulty - Plan Plan:: 12/03/19 Assessment: 24 yo at 40 1/7 weeks here in latent labor GBS negative Elevated blood pressures, UA positive for protein, LDH normal, platelets normal , liver enzymes normal O pos blood type Rubella NON-immune Plan: Anticipate Admit due to cervical dilation, contractions, and elevated blood pressure Will recheck cervical dilation and consider AROM if patient requests 12/03/19 Routine cares Perineal cares Support Anticipate 24-48 hour stay 12/04/19 Routine cares support Perineal cares Recheck WBC tomorrow am Anticipate discharge home tomorrow 12/05/19 Routine cares support, support both breast and bottle today Anticipate discharge tomorrow, staying today to reinforce education and continue to support and help with No more IV antibiotics, will continue Flagyl for suspected BV 12/06/19 Continue routine cares support Discharge home today, finish full prescription of Flagyl BP check in clinic Tuesday
[2019-12-06] MEDS: metroNIDAZOLE 250 MG Tab PO SCH (10:40)
[2019-12-06 10:46] VITALS: BP 119/64; PULSE 88
== END 2019-12-06 12:00 | disposition home or self-care (01) | DRG 560 ==
LOC: JP.OBCHECK 12:33 → JP.OB 13:24 → OBSVTOIN 21:11 → JP.OB 21:11 → JP.MS 21:12
PROVIDERS: ADMIT Advanced Practice Midwife; ATTEND Advanced Practice Midwife
PROC: 10E0XZZ Delivery of Products of Conception, External Approach (ICD-10-PCS; principal; 2019-12-03)
PROC: 10907ZC Drainage of Amniotic Fluid, Therapeutic from Products of Conception, Via Natural or Artificial Opening (ICD-10-PCS; 2019-12-03)
PROC: 0KQM0ZZ Repair Perineum Muscle, Open Approach (ICD-10-PCS; 2019-12-03)
PROC: 3E0R3BZ Introduction of Anesthetic Agent into Spinal Canal, Percutaneous Approach (ICD-10-PCS; 2019-12-03)
PROC: 00HU33Z Insertion of Infusion Device into Spinal Canal, Percutaneous Approach (ICD-10-PCS; 2019-12-03)
PROC: 3E0234Z Introduction of Serum, Toxoid and Vaccine into Muscle, Percutaneous Approach (ICD-10-PCS; 2019-12-04)
DX: O48.0 Post-term pregnancy (principal); Z37.0 Single live birth; O70.1 Second degree perineal laceration during delivery; O75.3 Other infection during labor; B96.89 Other specified bacterial agents as the cause of diseases classified elsewhere; O99.344 Other mental disorders complicating childbirth; F41.9 Anxiety disorder, unspecified; O99.214 Obesity complicating childbirth; E66.9 Obesity, unspecified; O13.4 Gestational [pregnancy-induced] hypertension without significant proteinuria, complicating childbirth; Z3A.40 40 weeks gestation of pregnancy; Z88.0 Allergy status to penicillin; Z90.49 Acquired absence of other specified parts of digestive tract; Z23 Encounter for immunization
CPT/HCPCS: 36415; 51702; 59409; 80053; 80305-QW; 81001; 82570; 83615; 84156; 85025; 90707; A9270-GY; J0696; J2405; J2590; J2795; J7050; J7120

== ENCOUNTER 2024-07-31 20:42 | Emergency (ER) | payer MEDICAID ==
[2024-07-31 21:40] LABS: CORONAVIRUS COVID-19 NAA NEGATIVE (NEGATIVE); INFLUENZA A NAA NEGATIVE (NEGATIVE); INFLUENZA B NAA NEGATIVE (NEGATIVE); RESPIRATORY SYNCYTIAL VIR NAA NEGATIVE (NEGATIVE)
[2024-07-31 21:53] VITALS: BP 132/85; PULSE 105
[2024-07-31] MEDS: Dexamethasone 4 MG/ML SDV PO STA (22:39)
== END 2024-07-31 22:40 | disposition home or self-care (01) ==
LOC: JP.ED 20:42
DX: B34.9 Viral infection, unspecified (principal); E66.9 Obesity, unspecified; Z90.49 Acquired absence of other specified parts of digestive tract; Z79.899 Other long term (current) drug therapy; Z88.0 Allergy status to penicillin; Z68.41 Body mass index [BMI] 40.0-44.9, adult
CPT/HCPCS: 0241U; 99283; J1100